=== PATIENT | female | born 1985 | race Two or more races ===

== ENCOUNTER 2018-02-15 15:31 | Emergency (ER) | payer MEDICAID ==
[2016-04-14 16:53] VITALS: Wt 87.5 kg
[~2018-02-15 15:31] MED LIST: ACET-2031 PO; ALBU8.5H12 IH; AMOX-362 PO; AMOX500T10 PO; BENZ200C38 PO; CALC-515 PO; CIPR-344 PO; CODE118S5 PO; FERR-53 PO; FLUO40CA76 PO; HYDR-4309 PO; IBUP600T22 PO; IBUP800T37 PO; KET10 PO; LOR5/325 PO; LORA-802 PO; NEOM10SO23 OT; NORG1TAB74 PO; OXYC-865 PO; PER PO; PRE20 PO; PRED20TA6 PO; PROM-110 PO; TRAZ-163 PO
[2018-02-15] MEDS ORDERED: MELO-207 PO (15:37)
--- NOTE | 2018-02-15 15:51 | ER Report ---
History and Physical Time Seen By MD: 15:51 Hx. of Stated Complaint: PT REPORTS "ADVERSE REACTION FROM MELOXICAM". PT SENT TO ER FROM PRIMARY; TUBAL LIGATION 2 YEARS AGO, STILL HAS PAIN, STILL BREAST FEEDING HPI/ROS CHIEF COMPLAINT: Medication reaction HISTORY OF PRESENT ILLNESS: This is a 32-year-old male who presents to the emergency department for concerns of a medication reaction. Patient states that about 2 years ago she had a tubal ligation, on the right side she's had intermittent abdominal pain since then seems to coincide with her menstrual cycles. Patient states she's followed up with her ETHICS MANAGER and ultimately 5 days ago they gave her some meloxicam to see if that would help with some of discomfort. Patient states that since starting the meloxicam she's had about 2- 3 days worth of increased shortness of breath she is unsure if this is inducing some sort of reaction to her asthma. She called the ETHICS MANAGER and they said go to the emergency department for further evaluation. Patient arrives alert and oriented not short of breath patient states she is feeling better at this time. She did try her albuterol inhaler prior to arrival. Patient states she does not want to take the meloxicam anymore. We discussed trying a couple of other medications and we will also give her a DuoNeb. REVIEW OF SYSTEMS: Respiratory: As above. Cardiovascular: No chest pain, no palpitations. Gastrointestinal: No vomiting, no abdominal pain. Musculoskeletal: No back pain. Allergies: Coded Allergies: No Known Drug Allergies (Verified , 02/15/18) Home Meds Active Scripts Metaxalone (SKELAXIN) 800 Mg Tablet, 800 MG PO TID Y for prn, #21 TAB 0 Refills Prov:FORD COOLEY DRIVER'S LICENSE REVIEWING OFFICER- 02/15/18 Albuterol Sul Hfa 90 Mcg 8 Gm (VENTOLIN HFA 90 MCG 8 GM) 8.5 Gm Hfa.aer.ad, 2 PUFF IH Q4-6H, #1 Prov:BRIAN MENDOZA DO 12/06/14 Reported Medications Meloxicam (MELOXICAM) 15 Mg Tablet, 15 MG PO QDAY 02/15/18 Discontinued Scripts Oxycodone Hcl/Acetaminophen (PERCOCET 5-325 MG TABLET) 1 Each Tablet, 1-2 TAB PO Q4H Y for pain, #30 TAB 0 Refills Prov:NIYA SNYDER MD 06/01/16 Ibuprofen (IBUPROFEN) 800 Mg Tablet, 1 TAB PO Q8H Y for pain, #30 TAB 0 Refills TAKE WITH FOOD EVERY 8 HOURS Prov:NIYA SNYDER MD 06/01/16 Ferrous Sulfate (FERROUS SULFATE) 325 Mg Tablet, 325 MG PO BIDBS for 30 Days, TAB 3 Refills Prov:TIMO CORDOVA MD 04/16/16 Past Medical/Surgical History Patient has a past medical and surgical history of intermittent asthma, wears glasses, , blood transfusion secondary to , psoriasis, depression, anxiety, cholecystectomy, tubal ligation. Reviewed Nurses Notes: Yes Hx Smoking: Yes (10-12 PER DAY 9 YEARS) Smoking Status: Current: Every Day Smoker Exposure to Second Hand Smoke?: Yes Hx Substance Use Disorder: No Hx Alcohol Use: Yes (RARELY) Constitutional Vital Sign - Last 24 Hours 02/15/18 02/15/18 02/15/18 02/15/18 15:31 15:35 15:37 15:46 Temp 98.2 Pulse ??? 103 100 Resp 16 B/P (MAP) 129/93 (105) 129/93 Pulse Ox 93 94 O2 Delivery Room Air 02/15/18 02/15/18 02/15/18 02/15/18 16:00 16:01 16:05 16:05 Pulse 99 93 Resp 17 B/P (MAP) 126/92 (103) Pulse Ox 93 93 O2 Delivery Room Air 02/15/18 02/15/18 02/15/18 02/15/18 16:12 16:16 16:21 16:30 Pulse 95 92 91 Resp 18 B/P (MAP) 126/86 (99) Pulse Ox 99 91 02/15/18 02/15/18 02/15/18 16:36 16:51 17:01 Pulse 88 95 B/P (MAP) 123/91 (102) Pulse Ox 95 92 Physical Exam General Appearance: The patient is alert, has no immediate need for airway protection and no current signs of toxicity. Eyes: Pupils equal and round no injection. Respiratory: Chest is non tender, lungs are clear to auscultation. Cardiac: regular rate and rhythm. Gastrointestinal: Abdomen is soft, round and non tender, no masses, bowel sounds normal. Musculoskeletal: Neck: Neck is supple and non tender. Extremities have full range of motion and are non tender. Skin: No rashes or lesions. DIFFERENTIAL DIAGNOSIS: After history and physical exam differential diagnosis was considered for medication reaction, asthma exacerbation, and abdominal pain. Medical Decision Making ED Course/Re-evaluation ED Course The patient was admitted to room. A history of physical or obtained. Differential diagnoses were considered. Patient states she was feeling much better after taking her own albuterol inhaler at home however we elected to go ahead and proceed with a DuoNeb here at which time she states she felt better. Patient states she will stop taking the meloxicam, we elected to try Skelaxin, the patient was in agreement with this plan of care and discharged home. Patient was also encouraged to follow up with her primary care provider and OB/ MEDICAL SERVICES COORDINATOR as scheduled for the right lower quadrant pain secondary to the tubal ligation according to the patient. Patient had no other questions or concerns was discharged home. The [facility] pharmacy called and said that they could not fill the Skelaxin without a prior authorization, we tried several other medications without required a prior authorization we ultimately decided to try diclofenac to see if this would help with some of her discomfort. Decision to Disposition Date: February 15, 2018 Decision to Disposition Time: 16:52 Depart Departure Latest Vital Signs Vital Signs Date Time Temp Pulse Resp B/P (MAP) Pulse Ox O2 Delivery O2 Flow Rate FiO2 02/15/18 17:01 123/91 (102) 02/15/18 16:51 95 92 02/15/18 16:12 18 02/15/18 16:05 Room Air 02/15/18 15:37 98.2 Impression: Primary Impression: Asthma Condition: Improved Disposition: HOME OR SELF-CARE Referrals: ASSISTANT PROFESSOR NURSE EDUCATION New Scripts Metaxalone (SKELAXIN) 800 Mg Tablet 800 MG PO TID Y for prn, #21 TAB 0 Refills Prov: FORD COOLEY DRIVER'S LICENSE REVIEWING OFFICER-BC 02/15/18 Patient Instructions: Asthma (ED), Tubal Ligation (GEN) Additional Instructions: Drink plenty of water. Get plenty of rest. Use your inhaler as needed. Take the Skelaxin as needed for pain, as we discussed there is no clinical data for or against use during so be cautious with it's use. Follow up with your OB as scheduled. Return to the ED for any other concerns or worsening symptoms. Problem Qualifiers Primary Impression: Asthma Asthma severity: mild Asthma persistence: intermittent Asthma complication type: uncomplicated Qualified Codes: J45.20 - Mild intermittent asthma, uncomplicated FORD COOLEYP- February 15, 2018 15:51
[2018-02-15] MEDS ORDERED: ALBUTEROL/IPRATROPIUM 3 ML NEB NEB ONE (16:10)
[2018-02-15] MEDS ORDERED: META800T18 PO (16:56)
[2018-02-15 17:01] VITALS: BP 123/91
== END 2018-02-15 17:07 | disposition home or self-care (01) ==
LOC: ER 15:40
DX: J45.20 Mild intermittent asthma, uncomplicated (principal)
CPT/HCPCS: 94640; 99283; J7620

== ENCOUNTER → 2018-05-24 | Outpatient (CLI) | payer MEDICAID ==
[2016-04-14 16:53] VITALS: BMI 35.6
[~2018-05-24] MED LIST changes: +CYCL10TA29 PO; +MELO-207 PO; +META800T18 PO; -TRAZ-163 PO; +TRAZ100T31 PO
[2018-05-24 14:07] LABS: PLATELET COUNT, AUTOMATED 419 K/uL (150-450)
== END ==
LOC: LAB 13:37
PROVIDERS: ATTEND Emergency Medicine
DX: M25.559 Pain in unspecified hip (principal)
CPT/HCPCS: 36415; 81001; 82040; 82247; 82306; 82310; 82374; 82435; 82565; 82947; 84075; 84132; 84155; 84295; 84443; 84450; 84460; 84520; 85025; 86140

== ENCOUNTER → 2018-08-07 | Outpatient (CLI) | payer MEDICAID ==
[2016-04-14 16:53] VITALS: BMI 35.6
[~2018-08-07] MED LIST changes: -HYDR-4309 PO; +HYDR-653 PO; +IOPAMIDOL 76% 75 ML INFUS BTL 75 ML ONE; +TRAM-420 PO
--- NOTE | 2018-08-07 13:20 | RADIOLOGY IMAGING REPORT ---
FACILITY: [facility] - [place] PATIENT NAME: Sheryl Hurd : 1985 MR: [id number] V: [id number] EXAM DATE: ORDERING PHYSICIAN: ROXANNE ROSS TECHNOLOGIST: Location: [facility] Patient: Sheryl Hurd : 1985 Visit/Account:[id number] Date of Sevice: 08/07/2018 ABDOMEN/PELVIS W/WO CONTRAST COMPARISON: None. HISTORY: RLQ abdominal pain x 2 years. Patient reports it began after tubal ligation, pain is worse with ambulation. TECHNIQUE: Axial CT abdomen and pelvis with and without IV contrast with a single postcontrast scan in standard venous phase. Coronal and sagittal reformats. One of the following dose optimization te chniques was utilized in the performance of this exam: automated exposure control; adjustment of the mA and/or kV according to patient size; or use of iterative reconstruction technique. Specific detai ls can be referenced in the facility's radiology CT exam operational policy. CONTRAST: 75 mL of IV Isovue-370. FINDINGS: LUNG BASES: Unremarkable. LIVER: Small region of low density in the liver adjacent to the falciform ligament characteristic in location for perfusional variation versus focal fat deposition. Otherwise unremarkable liver. BILIARY: There are cholecystectomy clips in the gallbladder fossa. No intra- or extrahepatic bile duct dilatation. SPLEEN: Normal. PANCREAS: Unremarkable. No significant mass, ductal dilatation or focal atrophy. No evidence of ac kendrick pancreatitis. ADRENALS: Unremarkable. KIDNEYS: There is a 3 mm nonobstructive stone in the left mid kidneya and a less than 1 mm nonobstru ctive stone in the upper pole. Symmetric renal enhancement. No excretion as expected. Single nondi lated right ureter. No right renal lesions. Multiple foci of cortical volume loss with associated d ecreased enhancement in the left kidney consistent with mild chronic parenchymal scarring. Additiona lly there is a slightly rounded area of similar decreased enhancement in the left kidney upper pole a nteriorly measuring 7 x 8 mm and series 939. This demonstrates low-grade enhancement and it is uncle ar if it represents a small renal lesion or an area of rounded cortical scarring. A hypoenhancing re nal neoplasm is difficult to exclude with a slightly rounded margins however it does enhance to the s peyton degree as areas of scarring/volume loss elsewhere. Left ureters are not dilated and there are no left ureteral stones. GI/MESENTERY: No visible mass, obstruction, or bowel wall thickening. The appendix is normal. Ther e is no localized inflammatory fat stranding, free air or free fluid. VASCULAR: Unremarkable. LYMPH NODES: Prominent but not frankly enlarged subcentimeter ridge peritoneal nodes in the abdomen and pelvis. Single borderline enlarged but mostly fatty replaced left external iliac node with short axis diameter one CM on series 5 image 409. BLADDER: Unremarkable. No visible focal wall thickening, appreciable lesion, or calculus. PELVIC ORGANS: Unremarkable uterus. Right-sided tubal ligation clips are noted. There is a lobulat ed lesion with rim enhancement in the right ovary measuring 1.9 cm on series 9 image 57, presumed col lapsing cyst. Left ovary is not identified. There is no left adnexal mass. No left tubal ligation clips identified. BONES: Unremarkable.No acute-appearing fracture or suspicious osseous lesion. OTHER: Negative. IMPRESSION: 1. 1.9 cm lobulated lesion in the right ovary is presumably a collapsing cyst. This could be confir med with a pelvic ultrasound if clinically desired. Otherwise no specific cause for right lower quad rant pain identified. 2. Small nonobstructive stones in the left kidney. No obstructive uropathy. 3. Completely duplicated left renal collecting system with multiple areas of cortical scarring throu ghout the left kidney which could be due to chronic vesicoureteral reflux or recurrent bouts of pyelo nephritis 4. Rounded area of decreased enhancement in the left kidney at the upper pole measuring on ly 8 mm. SCARRING IS FAVORED BUT A HYPOENHANCING NEOPLASM IS DIFFICULT TO EXCLUDE given the rounded margins. PRE-/POSTCONTRAST RENAL MRI RECOMMENDED FOR DIFFERENTIATION. Report Dictated By: Amor Lopez at 08/07/2018 12:53 PM Report E-Signed By: Amor Lopez at 08/07/2018 1:15 PM WSN:[email or web address]
== END ==
LOC: CT 01:38
PROVIDERS: ATTEND Emergency Medicine
DX: N83.202 Unspecified ovarian cyst, left side (principal); N28.1 Cyst of kidney, acquired; R10.31 Right lower quadrant pain
CPT/HCPCS: 74178; Q9967

== ENCOUNTER → 2018-08-09 | Outpatient (CLI) | payer MEDICAID ==
[2016-04-14 16:53] VITALS: BMI 35.6
[~2018-08-09] MED LIST changes: -IOPAMIDOL 76% 75 ML INFUS BTL 75 ML ONE
== END ==
LOC: LAB 11:55
PROVIDERS: ATTEND Emergency Medicine
DX: R10.31 Right lower quadrant pain (principal)
CPT/HCPCS: 81001

== ENCOUNTER → 2018-12-03 | Outpatient (CLI) | payer MEDICAID ==
[2016-04-14 16:53] VITALS: BMI 35.6
[~2018-12-03] MED LIST changes: +GADOBENATE 529MG/1ML 15ML VIAL IVP ONE; +NS(*) 0.9% 50 ML BAG 50 ML ONE
--- NOTE | 2018-12-03 10:45 | RADIOLOGY IMAGING REPORT ---
[place] [facility] [place] NAME: Sheryl Hurd : 1985 MR: [id number] V: [id number] EXAM DATE: ORDERING PHYSICIAN: ROXANNE ROSS TECHNOLOGIST: Location: [facility] Patient: Sheryl Hurd : 1985 Visit/Account:[id number] Date of Sevice: 12/03/2018 MR ABDOMEN W & W/O CON HISTORY: Abnormal left kidney on prior CT ADDITIONAL HISTORY: None. TECHNIQUE: TECHNIQUE: Multiplanar multisequence magnetic resonance imaging of the abdomen with and without intravenous contrast. CONTRAST: 15 mL of MultiHance COMPARISON: CT abdomen and pelvis August 07, 2018 FINDINGS: Visualized lung bases: Grossly unremarkable. Liver: Negative. Gallbladder: Surgically absent Bile ducts: Nondistended and unremarkable. Spleen: Negative. Adrenal glands: Negative. Pancreas: Negative. Kidneys: When compared to the recent CT again noted is cortical scarring in the left kidney. Also no jeanette is duplication of the left renal collecting system. The small 8 mm rounded area of hypoenhanceme nt on the recent CT scan is faintly seen on the postcontrast images and remained hypointense on the p ostcontrast images without evidence of enhancement. No abnormally enhancing lesions are identified w ithin the kidneys. Vessels/spaces/nodes: Mildly prominent but nonenlarged retroperitoneal lymph nodes also appear simila r to the prior CT Visualized GI: Grossly unremarkable. Bones/soft tissues: Unremarkable. IMPRESSION: Cortical scarring of the left kidney although no abnormal areas of contrast-enhancement identified. The previously noted round hypoenhancing region upper pole the left kidney on the recent CT most like ly represents a small area of scarring or a small proteinaceous or hemorrhagic cyst. A six-month fol low-up CT is recommended unless clinical findings were immediate attention Report Dictated By: Carole Soto MD at 12/03/2018 10:17 AM Report E-Signed By: Carole Soto MD at 12/03/2018 10:41 AM WSN:[email or web address]
--- NOTE | 2018-12-03 15:02 | RADIOLOGY IMAGING REPORT ---
FACILITY: [facility] PATIENT NAME: Sheryl Hurd : 1985 MR: [id number] V: [id number] EXAM DATE: ORDERING PHYSICIAN: ROXANNE ROSS TECHNOLOGIST: Location: [facility] Patient: Sheryl Hurd : 1985 Visit/Account:[id number] Date of Sevice: 12/03/2018 PELVIC HISTORY: ovarian lesion TECHNIQUE: Transvaginal and transabdominal ultrasound pelvis. COMPARISON: CT abdomen pelvis August 07, 2018 FINDINGS: Uterus: ; 9.5 cm length x 4.6 cm AP x 4.1 cm transverse. Myometrium: Along the anterior aspect the lower uterine segment there is a 1.8 x 2 x 1.4 cm echogenic nodule containing a cystic component. Endometrium: Unremarkable; double thickness 7.5 mm. Cervix: Nabothian cysts. Ovaries: Right - 2.7 x 2 x 3.2 cm. There is a 1.8 cm cyst within the right ovary. By technologist isiat ion up blood flow could not be demonstrated to the right ovary due to patient's body habitus and deep location of the ovary Left - removed Adnexa: Grossly unremarkable. Free pelvic fluid: None. IMPRESSION: There is a 1.8 cm simple right ovarian cyst By technologist notation blood flow could not be demonstrated to the right ovary due to patient's bod y habitus and deep location of the ovary Left ovary has been surgically removed by history Along the anterior aspect the lower uterine segment there is a 1.8 x 2 x 1.4 cm echogenic nodule cont aining a cystic component. Nabothian cysts Report Dictated By: Carole Soto MD at 12/03/2018 2:52 PM Report E-Signed By: Carole Soto MD at 12/03/2018 2:59 PM WSN:[email or web address]
== END ==
LOC: MRI 01:12
PROVIDERS: ATTEND Emergency Medicine
DX: N83.291 Other ovarian cyst, right side (principal); R93.9 Diagnostic imaging inconclusive due to excess body fat of patient; R93.421 Abnormal radiologic findings on diagnostic imaging of right kidney; Z90.49 Acquired absence of other specified parts of digestive tract; Z90.721 Acquired absence of ovaries, unilateral; N88.8 Other specified noninflammatory disorders of cervix uteri
CPT/HCPCS: 74183; 76856; A9577; J7050

== ENCOUNTER → 2018-12-24 | Outpatient (CLI) | payer MEDICAID ==
[2016-04-14 16:53] VITALS: BMI 35.6
[~2018-12-24] MED LIST changes: -GADOBENATE 529MG/1ML 15ML VIAL IVP ONE; -NS(*) 0.9% 50 ML BAG 50 ML ONE; +[UNRECOGNIZED DRUG - OTHER] IVPB ONE
--- NOTE | 2018-12-24 12:23 | RADIOLOGY IMAGING REPORT ---
FACILITY: [facility] PATIENT NAME: Sheryl Hurd : 1985 MR: [id number] V: [id number] EXAM DATE: ORDERING PHYSICIAN: KALYANI ACEVEDO TECHNOLOGIST: [place] [facility] [place] Patient: Sheryl Hurd : 1985 Visit/Account:[id number] Date of Sevice: 12/24/2018 Examination: Voiding cystourethrogram HISTORY: Duplicated left renal collecting system. Evaluate for vesicoureteral reflux. TECHNIQUE: A junior web designer image was obtained of the abdomen. A Mcclain catheter was placed by one of the emergency room nurses. The bladder was then filled with 350 mL of Cysto-Conray. Fluoroscopic overhead images were obtained of the bladder in multiple projections. Images were also obtained of the upper abdomen to i nclude the kidneys. The table was then positioned vertically and the patient voided. Fluoroscopic s pot images were then obtained. The fluoroscopy time measured 1.8 minutes with a dose area product of 2236.32uGy*m2. Findings: The initial junior web designer image demonstrates a normal intestinal bowel gas pattern. A rounded calcification overlies the upper pole of the left kidney which measures 4-5 mm consistent with a left-sided renal s tone. The bladder appears normal when fully distended with contrast. There is no evidence of vesicouretera l reflux with a full bladder. Views of the urethra were normal. The bladder nearly completely emptied with voiding. There was no evidence of vesicoureteral reflux with voiding. IMPRESSION: 1. No evidence of vesicoureteral reflux. 2. Near complete emptying of the bladder with voiding. 3. Left midpole renal stone. Report Dictated By: Tyron Argueta at 12/24/2018 12:13 PM Report E-Signed By: Tyron Argueta at 12/24/2018 12:18 PM WSN:[email or web address]
== END ==
LOC: RAD 02:28
PROVIDERS: ATTEND Urology
DX: N20.0 Calculus of kidney (principal)
CPT/HCPCS: 51600; 74455; Q9958

== ENCOUNTER 2019-01-14 17:30 | Emergency (ER) | payer SELFPAY ==
[2016-04-14 16:53] VITALS: Wt 99.8 kg
[~2019-01-14 17:30] MED LIST changes: -[UNRECOGNIZED DRUG - OTHER] IVPB ONE
--- NOTE | 2019-01-14 17:32 | ER Report ---
History and Physical Time Seen By MD: 17:31 HPI/ROS CHIEF COMPLAINT: Fever, chills HISTORY OF PRESENT ILLNESS: 33 year-old female presents ambulatory to the ER complaining of chills for 24 hours. She notes no obvious source. She denies upper respiratory symptoms, sore throat, rhinitis or a cough. She denies ear pain. 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 She denies urinary tract symptoms. Patient denies exposure to ill contacts. REVIEW OF SYSTEMS: Respiratory: No cough, no dyspnea. Cardiovascular: No chest pain, no palpitations. Gastrointestinal: No vomiting, no abdominal pain. Musculoskeletal: No back pain. Allergies: Coded Allergies: meloxicam (Verified Allergy, Unknown, anxiety, 01/14/19) Home Meds Active Scripts Cefuroxime Axetil (CEFUROXIME) 500 Mg Tablet, 500 MG PO BID for infection, #20 TAB Prov:BK MACHADO DO 01/14/19 Albuterol Sul Hfa 90 Mcg 8 Gm (VENTOLIN HFA 90 MCG 8 GM) 8.5 Gm Hfa.aer.ad, 2 PUFF IH Q4-6H, #1 Prov:BRIAN MENDOZA DO 12/06/14 Discontinued Scripts Tramadol Hcl (TRAMADOL HCL) 50 Mg Tablet, 50-100 MG PO Q4-6H, #30 TAB Prov:ROXANNE ROSS MD 08/09/18 Cyclobenzaprine Hcl (CYCLOBENZAPRINE HCL) 10 Mg Tablet, 10 MG PO TID, #30 TAB 0 Refills Prov:ROXANNE ROSS MD 05/24/18 Past Medical/Surgical History Past Medical History Respiratory: Reports hx of: asthma Gastrointestinal: Reports hx of: peptic ulcer disease Integumentary: Reports hx of: psoriasis Psychiatric: Reports hx of: anxiety Past Surgical History Gastrointestinal: Reports hx of: cholecystectomy (2008) Gynecologic: Reports hx of: oophorectomy (L ovary removed 2012) tubal ligation (2015) Reviewed Nurses Notes: Yes Old Medical Records Reviewed: Yes Hx Smoking: Yes (10-12 PER DAY 9 YEARS) Smoking Status: Current: Every Day Smoker Exposure to Second Hand Smoke?: Yes (15) Hx Substance Use Disorder: No Hx Alcohol Use: Yes (RARELY) Constitutional Vital Sign - Last 24 Hours 01/14/19 01/14/19 01/14/19 01/14/19 17:35 18:00 18:26 18:30 Temp 101.3 Pulse 117 107 100 Resp 18 19 B/P (MAP) 105/62 127/87 (100) Pulse Ox 93 93 91 O2 Delivery Room Air 01/14/19 01/14/19 01/14/19 01/14/19 18:35 18:43 18:50 19:05 Temp 102.9 Pulse 104 100 105 Resp 11 20 15 Pulse Ox 91 90 92 01/14/19 01/14/19 01/14/19 19:20 19:35 19:50 Pulse 104 108 104 Resp 12 8 9 Pulse Ox 91 91 91 Intake and Output 01/14/19 01/14/19 01/15/19 14:59 22:59 06:59 Intake Total 2000 ml Balance 2000 ml Physical Exam General Appearance: The patient is alert, has no immediate need for airway protection and no current signs of toxicity., Fever 101.4 HEENT: Pupils equal and round no injection. TMs normal, oropharynx with no erythema, mucous numbers are moist Respiratory: Chest is non tender, lungs are clear to auscultation. No wheezing or rails Cardiac: regular rate and rhythm Gastrointestinal: Abdomen is soft and non tender, no masses, bowel sounds normal. No CVA tenderness Musculoskeletal: Neck: Neck is supple and non tender. No lymphadenopathy, no meningismus Extremities have full range of motion and are non tender. Skin: No rashes or lesions. DIFFERENTIAL DIAGNOSIS: After history and physical exam differential diagnosis was considered for adult fever including but not limited to viral syndromes including influenza, urinary tract infection, pneumonia and sepsis. Medical Decision Making Data Points Result Diagram: 01/14/19 17401/14/19 174 Laboratory Hematology Test 01/14/19 17:40 01/14/19 17:43 01/14/19 18:21 Red Blood Count 5.61 M/uL (4.17-5.56) Mean Corpuscular Volume 81.3 fL (80.0-96.0) Mean Corpuscular Hemoglobin 26.7 pg (26.0-33.0) Mean Corpuscular Hemoglobin Concent 32.8 g/dL (32.0-36.0) Red Cell Distribution Width 14.8 % (11.5-14.5) Mean Platelet Volume 8.2 fL (7.2-11.1) Neutrophils (%) (Auto) 81.8 % (39.4-72.5) Lymphocytes (%) (Auto) 7.5 % (17.6-49.6) Monocytes (%) (Auto) 8.7 % (4.1-12.4) Eosinophils (%) (Auto) 1.3 % (0.4-6.7) Basophils (%) (Auto) 0.7 % (0.3-1.4) Nucleated RBC Relative Count (auto) 0.0 /100WBC Neutrophils # (Auto) 16.1 K/uL (2.0-7.4) Lymphocytes # (Auto) 1.5 K/uL (1.3-3.6) Monocytes # (Auto) 1.7 K/uL (0.3-1.0) Eosinophils # (Auto) 0.3 K/uL (0.0-0.5) Basophils # (Auto) 0.1 K/uL (0.0-0.1) Nucleated RBC Absolute Count (auto) 0.01 K/uL Sodium Level 139 mmol/L (137-145) Potassium Level 4.2 mmol/L (3.5-5.0) Chloride Level 102 mmol/L (98-107) Carbon Dioxide Level 24 mmol/L (22-31) Blood Urea Nitrogen 10 mg/dl (7-18) Creatinine 0.90 mg/dl (0.52-1.04) Glomerular Filtration Rate Calc > 60.0 Random Glucose 98 mg/dl (75-110) Lactate 1.3 mmol/L (0.7-2.1) Calcium Level 10.1 mg/dl (8.4-10.2) Total Bilirubin 0.4 mg/dl (0.2-1.3) Aspartate Amino Transf (AST/SGOT) 17 U/L (0-35) Alanine Aminotransferase (ALT/SGPT) 25 U/L (0-56) Alkaline Phosphatase 109 U/L (0-126) Total Protein 8.2 g/dl (6.3-8.2) Albumin 4.6 g/dl (3.5-5.0) Urine Color Yellow Urine Clarity Slightly-cloudy Urine pH 5.0 pH (4.8-9.5) Urine Specific [place] 1.016 Urine Protein Negative mg/dL (NEGATIVE) Urine Glucose (UA) Negative mg/dL (NEGATIVE) Urine Ketones Negative mg/dL (NEGATIVE) Urine Blood Moderate (NEGATIVE) Urine Nitrite Negative (NEGATIVE) Urine Bilirubin Negative (NEGATIVE) Urine Urobilinogen Negative mg/dL (0.2-1.9) Urine Leukocyte Esterase Small (NEGATIVE) Urine RBC 52 /HPF (0-2/HPF) Urine WBC 7 /HPF (0-5/HPF) Urine Squamous Epithelial Cells Many /LPF (</=FEW) Urine Bacteria Moderate /HPF (NONE-FEW) Urine Mucus None /HPF (NONE-FEW) Influenza Virus Type A (PCR) Negative (NEGATIVE) Influenza Virus Type B (PCR) Negative (NEGATIVE) Chemistry Test 01/14/19 17:40 01/14/19 17:43 01/14/19 18:21 White Blood Count 19.7 k/uL (4.5-11.0) Red Blood Count 5.61 M/uL (4.17-5.56) Hemoglobin 15.0 g/dL (12.0-16.0) Hematocrit 45.6 % (34.0-47.0) Mean Corpuscular Volume 81.3 fL (80.0-96.0) Mean Corpuscular Hemoglobin 26.7 pg (26.0-33.0) Mean Corpuscular Hemoglobin Concent 32.8 g/dL (32.0-36.0) Red Cell Distribution Width 14.8 % (11.5-14.5) Platelet Count 458 K/uL (150-450) Mean Platelet Volume 8.2 fL (7.2-11.1) Neutrophils (%) (Auto) 81.8 % (39.4-72.5) Lymphocytes (%) (Auto) 7.5 % (17.6-49.6) Monocytes (%) (Auto) 8.7 % (4.1-12.4) Eosinophils (%) (Auto) 1.3 % (0.4-6.7) Basophils (%) (Auto) 0.7 % (0.3-1.4) Nucleated RBC Relative Count (auto) 0.0 /100WBC Neutrophils # (Auto) 16.1 K/uL (2.0-7.4) Lymphocytes # (Auto) 1.5 K/uL (1.3-3.6) Monocytes # (Auto) 1.7 K/uL (0.3-1.0) Eosinophils # (Auto) 0.3 K/uL (0.0-0.5) Basophils # (Auto) 0.1 K/uL (0.0-0.1) Nucleated RBC Absolute Count (auto) 0.01 K/uL Glomerular Filtration Rate Calc > 60.0 Lactate 1.3 mmol/L (0.7-2.1) Calcium Level 10.1 mg/dl (8.4-10.2) Total Bilirubin 0.4 mg/dl (0.2-1.3) Aspartate Amino Transf (AST/SGOT) 17 U/L (0-35) Alanine Aminotransferase (ALT/SGPT) 25 U/L (0-56) Alkaline Phosphatase 109 U/L (0-126) Total Protein 8.2 g/dl (6.3-8.2) Albumin 4.6 g/dl (3.5-5.0) Urine Color Yellow Urine Clarity Slightly-cloudy Urine pH 5.0 pH (4.8-9.5) Urine Specific [place] 1.016 Urine Protein Negative mg/dL (NEGATIVE) Urine Glucose (UA) Negative mg/dL (NEGATIVE) Urine Ketones Negative mg/dL (NEGATIVE) Urine Blood Moderate (NEGATIVE) Urine Nitrite Negative (NEGATIVE) Urine Bilirubin Negative (NEGATIVE) Urine Urobilinogen Negative mg/dL (0.2-1.9) Urine Leukocyte Esterase Small (NEGATIVE) Urine RBC 52 /HPF (0-2/HPF) Urine WBC 7 /HPF (0-5/HPF) Urine Squamous Epithelial Cells Many /LPF (</=FEW) Urine Bacteria Moderate /HPF (NONE-FEW) Urine Mucus None /HPF (NONE-FEW) Influenza Virus Type A (PCR) Negative (NEGATIVE) Influenza Virus Type B (PCR) Negative (NEGATIVE) Urinalysis Test 01/14/19 17:43 Urine Color Yellow Urine Clarity Slightly-cloudy Urine pH 5.0 pH (4.8-9.5) Urine Specific [place] 1.016 Urine Protein Negative mg/dL (NEGATIVE) Urine Glucose (UA) Negative mg/dL (NEGATIVE) Urine Ketones Negative mg/dL (NEGATIVE) Urine Blood Moderate (NEGATIVE) Urine Nitrite Negative (NEGATIVE) Urine Bilirubin Negative (NEGATIVE) Urine Urobilinogen Negative mg/dL (0.2-1.9) Urine Leukocyte Esterase Small (NEGATIVE) Urine RBC 52 /HPF (0-2/HPF) Urine WBC 7 /HPF (0-5/HPF) Urine Squamous Epithelial Cells Many /LPF (</=FEW) Urine Bacteria Moderate /HPF (NONE-FEW) Urine Mucus None /HPF (NONE-FEW) ED Course/Re-evaluation Clinical Indication for ER IV: Hydration, IV Access ED Course Patient was admitted to an examination room. H&P was done. The differential diagnoses was considered. Patient with a fever 101.4. She's having chills. Sugars no obvious source that she admits to. She denies urinary tract infection and upper respiratory infection. She has no joint swelling. She has no abdominal pain. Diagnostic evaluation is undertaken. Patient has elevated white blood cell count of 20,000. There is a left shift. Patient's chest x-ray is clear. He has some chronic scarring is unchanged from old chest x-ray. Her urinalysis has a trace infection. Explain a 20,000 white count, dairy cultures ordered. Blood cultures are ordered. Lactate returns normal. Patient's rapid influenza is negative as well well. Patient will be covered with Ceftin antibiotic pending return of her cultures. Patient advised to alternate ibuprofen and Tylenol to control her fever and increase her fluid intake. Decision to Disposition Date: Jan 14, 2019 Decision to Disposition Time: 19:43 Depart Departure Latest Vital Signs Vital Signs Date Time Temp Pulse Resp B/P (MAP) Pulse Ox O2 Delivery O2 Flow Rate FiO2 01/14/19 19:50 104 9 91 01/14/19 18:43 102.9 01/14/19 18:26 127/87 (100) 01/14/19 17:35 Room Air Impression: Primary Impression: Fever Additional Impression: Urinary tract infection Condition: Improved Disposition: HOME OR SELF-CARE Referrals: ROXANNE ROSS MD (PCP) New Scripts Cefuroxime Axetil (CEFUROXIME) 500 Mg Tablet 500 MG PO BID for infection, #20 TAB Prov: CARTERBK Susanne GALDAMEZ 01/14/19 Patient Instructions: Fever in Adults (ED), Urinary Tract Infection in Men (ED) Additional Instructions: Take ibuprofen and Tylenol as needed to control fever Increase fluid intake, especially popsicles Take antibiotic until gone Follow-up with your primary care doctor if unimproved in 2-3 days Problem Qualifiers Primary Impression: Fever Fever type: unspecified Qualified Codes: R50.9 - Fever, unspecified Additional Impression: Urinary tract infection Urinary tract infection type: acute cystitis Hematuria presence: without hematuria Qualified Codes: N30.00 - Acute cystitis without hematuria BK MACHADO DO Jan 14, 2019 17:32
[2019-01-14] MEDS ORDERED: NS(*) 0.9% 1000 ML BAG 1,000 ML IV ONE ×3 (17:38→18:30)
[2019-01-14] MEDS ORDERED: ACETAMINOPHEN 325 MG TAB PO ONE (17:40)
[2019-01-14 18:10] LABS: PLATELET COUNT, AUTOMATED 458 K/uL (150-450)
[2019-01-14 18:26] VITALS: BP 127/87
--- NOTE | 2019-01-14 18:29 | RADIOLOGY IMAGING REPORT ---
FACILITY: [facility] - [place] PATIENT NAME: Sheryl Hurd : 1985 MR: [id number] V: [id number] EXAM DATE: ORDERING PHYSICIAN: BK MACHADO TECHNOLOGIST: Location: [facility] Patient: Sheryl Hurd : 1985 Visit/Account:[id number] Date of Sevice: 01/14/2019 2 VIEWS CHEST INDICATION: Cough, fever and chills. COMPARISON: 01/27/2015. FINDINGS: Cardiomediastinal silhouette and pulmonary vessels within normal limits. There is no focal infiltrate or lobar consolidation. There is no pneumothorax or pleural effusion. No nodule. Upper abdomen is unremarkable. Surgical clips in the right upper abdomen. No acute bony abnormality. IMPRESSION: 1. No acute cardiopulmonary process. Report Dictated By: Johnathan Sanches at 01/14/2019 6:24 PM Report E-Signed By: Johnathan Sanches at 01/14/2019 6:25 PM WSN:[id number]
[2019-01-14] MEDS ORDERED: CEFU500T10 PO (19:44)
[2019-01-14] MEDS ORDERED: CEFUROXIME AXETIL 250 MG TAB PO ONE (19:45)
[2019-01-15] MEDS ORDERED: CIPR-344 PO (18:24)
[2019-01-15] MEDS ORDERED: ONDA4TAB9 PO (18:24)
[2019-01-15] MEDS ORDERED: HYDR-385 PO (18:24)
== END 2019-01-14 20:04 | disposition home or self-care (01) ==
LOC: ER 17:46
DX: N30.00 Acute cystitis without hematuria (principal); R50.9 Fever, unspecified
CPT/HCPCS: 71046; 81001; 83605; 85025; 87040; 87077; 87088; 87186; 87502; 96360; 96361; 99283; J7030; 82040; 82247; 82310; 82374; 82435; 82565; 82947; 84075; 84132; 84155; 84295; 84450; 84460; 84520

== ENCOUNTER 2019-01-15 16:01 | Emergency (ER) | payer SELFPAY ==
[2016-04-14 16:53] VITALS: Wt 99.8 kg
[~2019-01-15 16:01] MED LIST changes: +CEFU500T10 PO
[2019-01-15] MEDS ORDERED: NS(*) 0.9% 1000 ML BAG 1,000 ML IV ONE (16:34)
[2019-01-15] MEDS ORDERED: MORPHINE 2 MG/ML SYR IVP ONE (16:35)
[2019-01-15] MEDS ORDERED: ONDANSETRON 4 MG/2 ML VIAL IVP ONE ×2 (16:35→18:40)
--- NOTE | 2019-01-15 16:40 | ER Report ---
History and Physical Time Seen By MD: 16:40 Hx. of Stated Complaint: GIVEN CEPHALOSPORIN YESTERDAY FOR UTI. VOMITING X4 TODAY. FEVER, COUGH. BILATERAL FLANK PAIN. RLQ PAIN. HPI/ROS CHIEF COMPLAINT: Vomiting HISTORY OF PRESENT ILLNESS: 33 year old female presents with vomiting that started this morning. Patient was seen in the ED last night for fever, cough. She was diagnosed with a UTI and prescribed keflex. Patient took first dose this morning, and soon after, she began vomiting. Reports she has vomited 6-7 times today, no hematemesis. Reports she has been unable to keep anything down. She has cold and cough symptoms as well, which exacerbates the vomiting. Reports associated symptoms of nausea, fever, chills, headache, dizziness, right flank pain, lower abdominal pain. REVIEW OF SYSTEMS: Constitutional: Reports fever, chills, decreased appetite. HEENT: Reports dizziness/lightheadedness. No change in vision or hearing. Respiratory: Reports cough, no dyspnea Cardiovascular: No chest pain, no palpitations. Gastrointestinal: Reports nausea, vomiting, right flank pain, lower pelvic pain. Genitourinary: Denies burning or frequency of urination, denies change in urinary color. Musculoskeletal: Right flank pain and right low back pain. Skin: No rashes Allergies: Coded Allergies: meloxicam (Verified Allergy, Unknown, anxiety, 01/14/19) Home Meds Active Scripts Hydrocodone Bit/Acetaminophen (HYDROCODON-ACETAMINOPHEN 5-325) 1 Each Tablet, 1 EACH PO Q4-6H PRN for PAIN, #8 TAB Prov:LIU BEDOLLA [facility] 01/15/19 Ondansetron 4 Mg Odt (ONDANSETRON 4 MG ODT) 4 Mg Tab.rapdis, 4 MG PO Q6H PRN for NAUSEA/VOMITING, #20 TAB Prov:LIU BEDOLLA [facility] 01/15/19 Ciprofloxacin Hcl 500 Mg Tab (CIPRO 500 MG TAB) 500 Mg Tablet, 500 MG PO BID, #14 TAB Prov:LIU BEDOLLA [facility] 01/15/19 Cefuroxime Axetil (CEFUROXIME) 500 Mg Tablet, 500 MG PO BID for infection, #20 TAB Prov:BK MACHADO DO 01/14/19 Albuterol Sul Hfa 90 Mcg 8 Gm (VENTOLIN HFA 90 MCG 8 GM) 8.5 Gm Hfa.aer.ad, 2 PUFF IH Q4-6H, #1 Prov:BRIAN MENDOZA DO 12/06/14 Discontinued Scripts Tramadol Hcl (TRAMADOL HCL) 50 Mg Tablet, 50-100 MG PO Q4-6H, #30 TAB Prov:ROXANNE ROSS MD 08/09/18 Cyclobenzaprine Hcl (CYCLOBENZAPRINE HCL) 10 Mg Tablet, 10 MG PO TID, #30 TAB 0 Refills Prov:ROXANNE ROSS MD 05/24/18 Past Medical/Surgical History Patient with significant past medical history of migraines, asthma, scarred kidneys, frequent UTIs, psoriasis, depression, anxiety. Patient has had to have 2 blood transfusions after . Past surgical history significant for section X2, cholecystectomy in 2008, left fallopian tube and left ovary removal, right tubal ligation. Reviewed Nurses Notes: Yes Hx Smoking: Yes (10-12 PER DAY 9 YEARS) Smoking Status: Current: Every Day Smoker Exposure to Second Hand Smoke?: Yes (15) Hx Substance Use Disorder: No Hx Alcohol Use: Yes (RARELY) Constitutional Vital Sign - Last 24 Hours 01/15/19 01/15/19 01/15/19 01/15/19 16:01 16:13 16:13 16:16 Temp 101.4 Pulse ??? 107 104 Resp 18 B/P (MAP) 119/81 (94) 119/81 Pulse Ox 90 90 O2 Delivery Room Air 01/15/19 01/15/19 01/15/19 01/15/19 16:30 16:31 16:46 17:00 Pulse 100 99 B/P (MAP) 125/80 (95) 117/75 (89) Pulse Ox 96 91 01/15/19 01/15/19 01/15/19 01/15/19 17:01 17:16 17:30 17:31 Pulse 93 87 75 B/P (MAP) 112/63 (79) Pulse Ox 88 85 96 01/15/19 01/15/19 01/15/19 01/15/19 17:46 18:00 18:05 18:20 Pulse 83 ? B/P (MAP) 129/70 (89) Pulse Ox 93 4/16/19 4/16/19 4/16/19 4/16/19 18:30 18:35 18:50 18:50 Pulse 91 85 84 Resp 16 B/P (MAP) 104/94 (97) Pulse Ox 90 91 01/15/19 01/15/19 01/15/19 01/15/19 18:50 19:00 19:05 19:20 Pulse 96 104 B/P (MAP) 122/70 (87) Pulse Ox 92 89 90 O2 Delivery Nasal Cannula O2 Flow Rate 2.0 01/15/19 01/15/19 19:30 19:35 Pulse ??? B/P (MAP) 132/71 (91) Physical Exam General Appearance: The patient is alert, has no immediate need for airway protection and no current signs of toxicity. Eyes: Pupils equal and round no injection. Respiratory: Chest is non tender, lungs are clear to auscultation. Cardiac: regular rate and rhythm Gastrointestinal: Upon palpation, patient reports right flank pain, lower pelvic pain, RUQ pain, and LUQ pain. Abdomen is soft, no masses, bowel sounds normal. Skin: No rashes or lesions. DIFFERENTIAL DIAGNOSIS: After history and physical exam differential diagnosis was considered for pyelonephritis, appendicitis, diverticulitis, bowel perforation, bowel obstruction, Medical Decision Making Data Points Result Diagram: 01/15/19 1655 01/15/19 1655 Laboratory Hematology Test 01/15/19 16:10 01/15/19 16:55 Urine Color Yellow Urine Clarity Clear Urine pH 5.0 pH (4.8-9.5) Urine Specific [place] 1.016 Urine Protein Negative mg/dL (NEGATIVE) Urine Glucose (UA) Negative mg/dL (NEGATIVE) Urine Ketones Negative mg/dL (NEGATIVE) Urine Blood Large (NEGATIVE) Urine Nitrite Negative (NEGATIVE) Urine Bilirubin Negative (NEGATIVE) Urine Urobilinogen Negative mg/dL (0.2-1.9) Urine Leukocyte Esterase Large (NEGATIVE) Urine RBC 106 /HPF (0-2/HPF) Urine WBC 31 /HPF (0-5/HPF) Urine Squamous Epithelial Cells Many /LPF (</=FEW) Urine Bacteria Few /HPF (NONE-FEW) Urine Mucus Few /HPF (NONE-FEW) Red Blood Count 5.34 M/uL (4.17-5.56) Mean Corpuscular Volume 79.8 fL (80.0-96.0) Mean Corpuscular Hemoglobin 26.3 pg (26.0-33.0) Mean Corpuscular Hemoglobin Concent 33.0 g/dL (32.0-36.0) Red Cell Distribution Width 14.5 % (11.5-14.5) Mean Platelet Volume 7.8 fL (7.2-11.1) Neutrophils (%) (Auto) 82.2 % (39.4-72.5) Lymphocytes (%) (Auto) 7.7 % (17.6-49.6) Monocytes (%) (Auto) 9.0 % (4.1-12.4) Eosinophils (%) (Auto) 0.6 % (0.4-6.7) Basophils (%) (Auto) 0.5 % (0.3-1.4) Nucleated RBC Relative Count (auto) 0.0 /100WBC Neutrophils # (Auto) 16.7 K/uL (2.0-7.4) Lymphocytes # (Auto) 1.6 K/uL (1.3-3.6) Monocytes # (Auto) 1.8 K/uL (0.3-1.0) Eosinophils # (Auto) 0.1 K/uL (0.0-0.5) Basophils # (Auto) 0.1 K/uL (0.0-0.1) Nucleated RBC Absolute Count (auto) 0.00 K/uL Peripheral Blood Smear Yes Y/N Erythrocyte Sedimentation Rate 65 mm/HOUR (0-20) Sodium Level 138 mmol/L (137-145) Potassium Level 3.5 mmol/L (3.5-5.0) Chloride Level 105 mmol/L (98-107) Carbon Dioxide Level 21 mmol/L (22-31) Blood Urea Nitrogen 8 mg/dl (7-18) Creatinine 0.70 mg/dl (0.52-1.04) Glomerular Filtration Rate Calc > 60.0 Random Glucose 153 mg/dl (75-110) Lactate 2.0 mmol/L (0.7-2.1) Calcium Level 8.9 mg/dl (8.4-10.2) Total Bilirubin 0.4 mg/dl (0.2-1.3) Aspartate Amino Transf (AST/SGOT) 15 U/L (0-35) Alanine Aminotransferase (ALT/SGPT) 17 U/L (0-56) Alkaline Phosphatase 101 U/L (0-126) C-Reactive Protein 23.0 mg/dl (<1.0) Total Protein 7.8 g/dl (6.3-8.2) Albumin 4.1 g/dl (3.5-5.0) Chemistry Test 01/15/19 16:10 01/15/19 16:55 Urine Color Yellow Urine Clarity Clear Urine pH 5.0 pH (4.8-9.5) Urine Specific [place] 1.016 Urine Protein Negative mg/dL (NEGATIVE) Urine Glucose (UA) Negative mg/dL (NEGATIVE) Urine Ketones Negative mg/dL (NEGATIVE) Urine Blood Large (NEGATIVE) Urine Nitrite Negative (NEGATIVE) Urine Bilirubin Negative (NEGATIVE) Urine Urobilinogen Negative mg/dL (0.2-1.9) Urine Leukocyte Esterase Large (NEGATIVE) Urine RBC 106 /HPF (0-2/HPF) Urine WBC 31 /HPF (0-5/HPF) Urine Squamous Epithelial Cells Many /LPF (</=FEW) Urine Bacteria Few /HPF (NONE-FEW) Urine Mucus Few /HPF (NONE-FEW) White Blood Count 20.3 k/uL (4.5-11.0) Red Blood Count 5.34 M/uL (4.17-5.56) Hemoglobin 14.1 g/dL (12.0-16.0) Hematocrit 42.6 % (34.0-47.0) Mean Corpuscular Volume 79.8 fL (80.0-96.0) Mean Corpuscular Hemoglobin 26.3 pg (26.0-33.0) Mean Corpuscular Hemoglobin Concent 33.0 g/dL (32.0-36.0) Red Cell Distribution Width 14.5 % (11.5-14.5) Platelet Count 398 K/uL (150-450) Mean Platelet Volume 7.8 fL (7.2-11.1) Neutrophils (%) (Auto) 82.2 % (39.4-72.5) Lymphocytes (%) (Auto) 7.7 % (17.6-49.6) Monocytes (%) (Auto) 9.0 % (4.1-12.4) Eosinophils (%) (Auto) 0.6 % (0.4-6.7) Basophils (%) (Auto) 0.5 % (0.3-1.4) Nucleated RBC Relative Count (auto) 0.0 /100WBC Neutrophils # (Auto) 16.7 K/uL (2.0-7.4) Lymphocytes # (Auto) 1.6 K/uL (1.3-3.6) Monocytes # (Auto) 1.8 K/uL (0.3-1.0) Eosinophils # (Auto) 0.1 K/uL (0.0-0.5) Basophils # (Auto) 0.1 K/uL (0.0-0.1) Nucleated RBC Absolute Count (auto) 0.00 K/uL Peripheral Blood Smear Yes Y/N Erythrocyte Sedimentation Rate 65 mm/HOUR (0-20) Glomerular Filtration Rate Calc > 60.0 Lactate 2.0 mmol/L (0.7-2.1) Calcium Level 8.9 mg/dl (8.4-10.2) Total Bilirubin 0.4 mg/dl (0.2-1.3) Aspartate Amino Transf (AST/SGOT) 15 U/L (0-35) Alanine Aminotransferase (ALT/SGPT) 17 U/L (0-56) Alkaline Phosphatase 101 U/L (0-126) C-Reactive Protein 23.0 mg/dl (<1.0) Total Protein 7.8 g/dl (6.3-8.2) Albumin 4.1 g/dl (3.5-5.0) Urinalysis Test 01/15/19 16:10 Urine Color Yellow Urine Clarity Clear Urine pH 5.0 pH (4.8-9.5) Urine Specific [place] 1.016 Urine Protein Negative mg/dL (NEGATIVE) Urine Glucose (UA) Negative mg/dL (NEGATIVE) Urine Ketones Negative mg/dL (NEGATIVE) Urine Blood Large (NEGATIVE) Urine Nitrite Negative (NEGATIVE) Urine Bilirubin Negative (NEGATIVE) Urine Urobilinogen Negative mg/dL (0.2-1.9) Urine Leukocyte Esterase Large (NEGATIVE) Urine RBC 106 /HPF (0-2/HPF) Urine WBC 31 /HPF (0-5/HPF) Urine Squamous Epithelial Cells Many /LPF (</=FEW) Urine Bacteria Few /HPF (NONE-FEW) Urine Mucus Few /HPF (NONE-FEW) EKG/Imaging Imaging FINDINGS: Lung bases: The lung bases are clear with only trace atelectasis. Liver and hepatic vasculature: Minimal fatty infiltration adjacent to the falciform. No focal lesion. Gallbladder and bile ducts: Surgically absent gallbladder. Mild prominence of the common bile duct in keeping with cholecystectomy. Spleen: Normal Pancreas: Normal Adrenals: Normal Kidneys, ureters and bladder: There is heterogeneous enhancement of the right renal parenchyma with some haziness and stranding adjacent to the right kidney and right ureter. No stone or obstruction. Normal appearing bladder.. Nonobstructive 4 to 5 mm left renal calculus. Normal left renal enhancement. Retroperitoneum and aorta: Normal caliber aorta. GI tract, mesentery and peritoneum: Normal appendix. Liquid stool in the right colon may correlate with diarrhea history. Uterus and adnexa: Unremarkable uterus. Bones and soft tissues: No acute osseous abnormality. IMPRESSION: 1. Heterogeneous enhancement of the right kidney and mild perinephric stranding suggest pyelonephritis. No obstructive stone. 2. Small amount of liquid stool in the right colon may correlate with a diarrhe a history. One of the following dose optimization techniques was utilized in the performance of this exam: Automated exposure control; adjustment of the mA and/or kV according to the patient's size; or use of an iterative reconstruction technique. Specific details can be referenced in the facility's radiology CT exam operational policy. ED Course/Re-evaluation ED Course Patient admitted to an exam room, history and physical obtained, differentials considered. Patient reports vomiting that started this morning. Patient was seen in the ED last night for fever, cough. She was diagnosed with a UTI and prescribed keflex. Patient took first dose this morning, and soon after, she began vomiting. Reports she has vomited 6-7 times today, no hematemesis. Reports she has been unable to keep anything down. Reports associated symptoms of nausea, fever, chills, headache, dizziness, right flank pain, lower abdominal pain. Denies burning or frequency of urination and change in urine color. Heart rate regular, regular rhythm. Lungs clear to auscultation. Upon palpation, patient reports right flank pain, lower pelvic pain, RUQ pain, and LUQ pain. CBC, CMP, lactate, ESR, CRP, UA, CT of abdomen and pelvis w/contrast obtained. IV started and 1000 ml NS infused, Morphine 4 mg IV push given, and Zofran 4mg IVP. WBC 20.3, Neutrophils 82.2, ESR 65, CRP 23. WBC from yesterday were 19.7 and neutrophils were 81.8. UA with large leukocytes. CT scan shows heterogeneous enhancement of the right kidney and mild perinephric stranding suggesting pyelonephritis; no obstructive stone. Ceftriaxone 1 gram IV given. Will send patient home with new prescription of ciprofoxacin for 7 days, zofran as needed for nausea, and lortab as needed for pain. Patient started to vomit prior to discharge again, so given one more dose of zofran prior to discharge. Patient home with self care and agrees to plan of care. Decision to Disposition Date: Jan 15, 2019 Decision to Disposition Time: 18:26 Depart Departure Latest Vital Signs Vital Signs Date Time Temp Pulse Resp B/P (MAP) Pulse Ox O2 Delivery O2 Flow Rate FiO2 01/15/19 19:35 ??? 01/15/19 19:30 132/71 (91) 01/15/19 19:20 90 01/15/19 18:50 Nasal Cannula 2.0 01/15/19 18:50 16 01/15/19 16:13 101.4 Impression: Primary Impression: Pyelonephritis Condition: Improved Disposition: HOME OR SELF-CARE Referrals: ROXANNE ROSS MD (PCP) New Scripts Hydrocodone Bit/Acetaminophen (HYDROCODON-ACETAMINOPHEN 5-325) 1 Each Tablet 1 EACH PO Q4-6H PRN for PAIN, #8 TAB Prov: LIU BEDOLLA 01/15/19 Ondansetron 4 Mg Odt (ONDANSETRON 4 MG ODT) 4 Mg Tab.rapdis 4 MG PO Q6H PRN for NAUSEA/VOMITING, #20 TAB Prov: LIU BEDOLLA 01/15/19 Ciprofloxacin Hcl 500 Mg Tab (CIPRO 500 MG TAB) 500 Mg Tablet 500 MG PO BID, #14 TAB Prov: LIU BEDOLLA 01/15/19 Patient Instructions: Kidney Infection (ED) Additional Instructions: Increase fluid intake. Get plenty of rest. Take your medication as prescribed. Return to the ER if condition worsens. Take Ibuprofen as needed for fevers. Limit activity by pain. Follow up with a provider for reevaluation towards the end of this week. LIU BEDOLLA Jan 15, 2019 16:40
[2019-01-15] MEDS ORDERED: IOPAMIDOL 76% 150 ML INFUS BTL 150 ML ONE (16:50)
[2019-01-15 17:07] LABS: PLATELET COUNT, AUTOMATED 398 K/uL (150-450)
[2019-01-15] MEDS ORDERED: cefTRIAXone(*) 1 GM VIAL 1 GM in NS(*) 0.9% 100 ML MINI-BAG 100 ML IVPB ONE (17:40)
--- NOTE | 2019-01-15 17:41 | RADIOLOGY IMAGING REPORT ---
FACILITY: [facility] PATIENT NAME: Sheryl Hurd : 1985 MR: [id number] V: [id number] EXAM DATE: ORDERING PHYSICIAN: LIU BEDOLLA TECHNOLOGIST: [facility] Patient: Sheryl Hurd : 1985 Visit/Account:[id number] Date of Sevice: 01/15/2019 COMPUTED TOMOGRAPHY OF THE Abdomen and Pelvis with CONTRAST INDICATION: Right flank pain. TECHNIQUE: Contiguous axial 3.[address] images were obtained through the abdomen and pelvis after 75 m L [id number]. Coronal and sagittal reformatted images were submitted. COMPARISON: CT abdomen and pelvis August 07, 2018. FINDINGS: Lung bases: The lung bases are clear with only trace atelectasis. Liver and hepatic vasculature: Minimal fatty infiltration adjacent to the falciform. No focal lesio n. Gallbladder and bile ducts: Surgically absent gallbladder. Mild prominence of the common bile duct in keeping with cholecystectomy. Spleen: Normal Pancreas: Normal Adrenals: Normal Kidneys, ureters and bladder: There is heterogeneous enhancement of the right renal parenchyma with some haziness and stranding adjacent to the right kidney and right ureter. No stone or obstruction. Normal appearing bladder.. Nonobstructive 4 to 5 mm left renal calculus. Normal left renal enhance ment. Retroperitoneum and aorta: Normal caliber aorta. GI tract, mesentery and peritoneum: Normal appendix. Liquid stool in the right colon may correlate w ith diarrhea history. Uterus and adnexa: Unremarkable uterus. Bones and soft tissues: No acute osseous abnormality. IMPRESSION: 1. Heterogeneous enhancement of the right kidney and mild perinephric stranding suggest pyelonephrit is. No obstructive stone. 2. Small amount of liquid stool in the right colon may correlate with a diarrhea history. One of the following dose optimization techniques was utilized in the performance of this exam: Autom ated exposure control; adjustment of the mA and/or kV according to the patient's size; or use of an i terative reconstruction technique. Specific details can be referenced in the facility's radiology C T exam operational policy. Report Dictated By: Hugo Higgins MD at 01/15/2019 5:27 PM Report E-Signed By: Hugo Higgins MD at 01/15/2019 5:37 PM [id number]:[email or web address]
[2019-01-15] MEDS ORDERED: ONDA4TAB9 PO (18:24)
[2019-01-15] MEDS ORDERED: CIPR-344 PO (18:24)
[2019-01-15] MEDS ORDERED: HYDR-385 PO (18:24)
[2019-01-15] MEDS ORDERED: ACETAMINOPHEN 500 MG TAB PO ONE (18:30)
[2019-01-15] MEDS ORDERED: ALBUTEROL/IPRATROPIUM 3 ML NEB NEB ONE (18:50)
[2019-01-15 19:30] VITALS: BP 132/71
[2019-01-15] MEDS ORDERED: ACET/HYDROC 5/325MG TH ER ONLY 2 TAB/BOTTLE PO ONE (19:35)
[2019-01-15] MEDS ORDERED: ONDANSETRON 4 MG ODT TH SL ONE (19:35)
== END 2019-01-15 19:35 | disposition home or self-care (01) ==
LOC: ER 16:14
DX: N11.1 Chronic obstructive pyelonephritis (principal); F17.210 Nicotine dependence, cigarettes, uncomplicated
CPT/HCPCS: 74177; 81001; 83605; 85025; 85651; 86140; 87088; 94640; 96361; 96365; 96375; 96376; 99284; J0696; J2270; J2405; J7030; J7620; Q9967; S0119; 82040; 82247; 82310; 82374; 82435; 82565; 82947; 84075; 84132; 84155; 84295; 84450; 84460; 84520

== ENCOUNTER 2019-03-06 14:41 | Emergency (ER) | payer MEDICAID ==
[2016-04-14 16:53] VITALS: Wt 96.2 kg
[~2019-03-06 14:41] MED LIST changes: +HYDR-385 PO; +ONDA4TAB9 PO
--- NOTE | 2019-03-06 14:54 | ER Report ---
History and Physical Time Seen By MD: 14:51 Hx. of Stated Complaint: Pt. has been feeling bad for 3 days. Productive cough with green sputum. Unsure if she has had a fever, but has periods of being hot and cold. Temp 99 in triage. Chest feels tight, and she has been vomiting due to coughing. Pt. has history of asthma. HPI/ROS CHIEF COMPLAINT: Cough, vomiting HISTORY OF PRESENT ILLNESS: 33 year old female presents to ED with cough for three days. Reports cough has been so bad that it causes her to vomit. She vomit s up her food and then green sputum. Reports she has been using her nebulizer treatments every four hours with no relief in symptoms. Also reports generalized chest pain that ramirez. Reports associated symptoms of low grade fever, chills. No other treatments tried. REVIEW OF SYSTEMS: Constitutional: Reports low grade fever, chills, clammy skin. No change in appetite. HENT: Reports hoarseness. Mild headache. No dizziness. No blurry vision. Respiratory: Reports cough and dyspnea. Generalized chest pain- feels like a burning sensation. Cardiovascular: Generalized chest pain- feels like a burning sensation. No palpitations. Gastrointestinal: Vomiting due to coughing. No abdominal pain. No constipation or diarrhea. Musculoskeletal: Back pain due to coughing. Allergies: Coded Allergies: meloxicam (Verified Allergy, Unknown, anxiety, 03/06/19) Home Meds Active Scripts Prednisone (PREDNISONE) 20 Mg Tablet, 40 MG PO DAILY for 5 Days, #10 TAB Prov:LIU BEDOLLA 03/06/19 Azithromycin 250 Mg Tab (AZITHROMYCIN 250 MG TAB) 250 Mg Tablet, 1 TAB PO QDAY, #6 TAB Take 2 tabs today and then 1 tab a day until gone. Prov:LIU BEDOLLA 03/06/19 Ipratropium/Albuterol Sulfate (IPRAT-ALBUT 0.5-3(2.5) MG/3 ML) 3 Ml Ampul.neb, 3 ML IH Q4-6H PRN for SHORTNESS OF BREATH, #20 VIAL Prov:LIU BEDOLLA 03/06/19 Ondansetron 4 Mg Odt (ONDANSETRON 4 MG ODT) 4 Mg Tab.rapdis, 4 MG PO Q6H PRN for NAUSEA/VOMITING, #20 TAB Prov:LIU BEDOLLAP 01/15/19 Albuterol Sul Hfa 90 Mcg 8 Gm (VENTOLIN HFA 90 MCG 8 GM) 8.5 Gm Hfa.aer.ad, 2 PUFF IH Q4-6H, #1 Prov:BRIAN MENDOZA DO 12/06/14 Discontinued Scripts Hydrocodone Bit/Acetaminophen (HYDROCODON-ACETAMINOPHEN 5-325) 1 Each Tablet, 1 EACH PO Q4-6H PRN for PAIN, #8 TAB Prov:LIU BEDOLLA [employer] 01/15/19 Ciprofloxacin Hcl 500 Mg Tab (CIPRO 500 MG TAB) 500 Mg Tablet, 500 MG PO BID, # 14 TAB Prov:LIU BEDOLLA [facility] 01/15/19 Cefuroxime Axetil (CEFUROXIME) 500 Mg Tablet, 500 MG PO BID for infection, #20 TAB Prov:BK MACHADO DO 01/14/19 Past Medical/Surgical History Past medical hx of asthma, scarred kidneys and left kidney malformation, frequent UTIs, psoriasis, depression, and anxiety. Past surgical hx of tubal ligation, left fallopian tube and left ovary removal, cholecystectomy in 2008, . Reviewed Nurses Notes: Yes Hx Smoking: Yes (10-12 PER DAY 9 YEARS) Smoking Status: Current: Every Day Smoker Exposure to Second Hand Smoke?: Yes (15) Hx Substance Use Disorder: No Hx Alcohol Use: Yes (RARELY) Constitutional Vital Sign - Last 24 Hours 03/06/19 03/06/19 03/06/19 03/06/19 14:45 14:45 14:46 14:51 Temp 99.0 Pulse 86 88 85 Resp 16 B/P (MAP) 129/81 (97) 129/81 Pulse Ox 87 88 96 O2 Delivery Room Air 03/06/19 03/06/19 03/06/19 03/06/19 14:56 15:00 15:01 15:06 Pulse 88 79 87 B/P (MAP) 129/86 (100) Pulse Ox 92 93 89 03/06/19 03/06/19 03/06/19 03/06/19 15:11 15:12 15:12 15:16 Pulse 76 80 83 Resp 18 Pulse Ox 99 92 94 O2 Delivery Nasal Cannula O2 Flow Rate 1.0 03/06/19 03/06/19 03/06/19 03/06/19 15:30 15:31 15:36 15:41 Pulse 72 81 73 B/P (MAP) 110/64 (79) Pulse Ox 94 92 95 Physical Exam General Appearance: The patient is alert, has no immediate need for airway protection and no current signs of toxicity. Eyes: Pupils equal and round no injection. Respiratory: Chest is non tender, lungs are clear to auscultation. Cardiac: regular rate and rhythm Gastrointestinal: Abdomen is soft and non tender, no masses, bowel sounds normal. Musculoskeletal: Neck: Neck is supple and non tender. Extremities have full range of motion and are non tender. Skin: No rashes or lesions. Skin is clammy and diaphoretic. DIFFERENTIAL DIAGNOSIS: After history and physical exam differential diagnosis was considered for pneumonia, upper respiratory infection, bronchitis. Medical Decision Making Data Points Result Diagram: 03/06/19 1501 03/06/19 1501 Laboratory Hematology Test 03/06/19 15:01 Red Blood Count 5.51 M/uL (4.17-5.56) Mean Corpuscular Volume 80.5 fL (80.0-96.0) Mean Corpuscular Hemoglobin 25.9 pg (26.0-33.0) Mean Corpuscular Hemoglobin Concent 32.2 g/dL (32.0-36.0) Red Cell Distribution Width 15.0 % (11.5-14.5) Mean Platelet Volume 7.9 fL (7.2-11.1) Neutrophils (%) (Auto) 91.6 % (39.4-72.5) Lymphocytes (%) (Auto) 5.5 % (17.6-49.6) Monocytes (%) (Auto) 2.5 % (4.1-12.4) Eosinophils (%) (Auto) 0.2 % (0.4-6.7) Basophils (%) (Auto) 0.2 % (0.3-1.4) Nucleated RBC Relative Count (auto) 0.1 /100WBC Neutrophils # (Auto) 13.6 K/uL (2.0-7.4) Lymphocytes # (Auto) 0.8 K/uL (1.3-3.6) Monocytes # (Auto) 0.4 K/uL (0.3-1.0) Eosinophils # (Auto) 0.0 K/uL (0.0-0.5) Basophils # (Auto) 0.0 K/uL (0.0-0.1) Nucleated RBC Absolute Count (auto) 0.01 K/uL Peripheral Blood Smear Yes Y/N Sodium Level 141 mmol/L (137-145) Potassium Level 4.6 mmol/L (3.5-5.0) Chloride Level 103 mmol/L (98-107) Carbon Dioxide Level 24 mmol/L (22-31) Blood Urea Nitrogen 15 mg/dl (7-18) Creatinine 1.10 mg/dl (0.52-1.04) Glomerular Filtration Rate Calc 56.5 Random Glucose 292 mg/dl (75-110) Calcium Level 9.8 mg/dl (8.4-10.2) Total Bilirubin 0.2 mg/dl (0.2-1.3) Aspartate Amino Transf (AST/SGOT) 16 U/L (0-35) Alanine Aminotransferase (ALT/SGPT) 28 U/L (0-56) Alkaline Phosphatase 101 U/L (0-126) Troponin I < 0.012 ng/ml Total Protein 8.1 g/dl (6.3-8.2) Albumin 4.4 g/dl (3.5-5.0) Chemistry Test 03/06/19 15:01 White Blood Count 14.9 k/uL (4.5-11.0) Red Blood Count 5.51 M/uL (4.17-5.56) Hemoglobin 14.3 g/dL (12.0-16.0) Hematocrit 44.4 % (34.0-47.0) Mean Corpuscular Volume 80.5 fL (80.0-96.0) Mean Corpuscular Hemoglobin 25.9 pg (26.0-33.0) Mean Corpuscular Hemoglobin Concent 32.2 g/dL (32.0-36.0) Red Cell Distribution Width 15.0 % (11.5-14.5) Platelet Count 423 K/uL (150-450) Mean Platelet Volume 7.9 fL (7.2-11.1) Neutrophils (%) (Auto) 91.6 % (39.4-72.5) Lymphocytes (%) (Auto) 5.5 % (17.6-49.6) Monocytes (%) (Auto) 2.5 % (4.1-12.4) Eosinophils (%) (Auto) 0.2 % (0.4-6.7) Basophils (%) (Auto) 0.2 % (0.3-1.4) Nucleated RBC Relative Count (auto) 0.1 /100WBC Neutrophils # (Auto) 13.6 K/uL (2.0-7.4) Lymphocytes # (Auto) 0.8 K/uL (1.3-3.6) Monocytes # (Auto) 0.4 K/uL (0.3-1.0) Eosinophils # (Auto) 0.0 K/uL (0.0-0.5) Basophils # (Auto) 0.0 K/uL (0.0-0.1) Nucleated RBC Absolute Count (auto) 0.01 K/uL Peripheral Blood Smear Yes Y/N Glomerular Filtration Rate Calc 56.5 Calcium Level 9.8 mg/dl (8.4-10.2) Total Bilirubin 0.2 mg/dl (0.2-1.3) Aspartate Amino Transf (AST/SGOT) 16 U/L (0-35) Alanine Aminotransferase (ALT/SGPT) 28 U/L (0-56) Alkaline Phosphatase 101 U/L (0-126) Troponin I < 0.012 ng/ml Total Protein 8.1 g/dl (6.3-8.2) Albumin 4.4 g/dl (3.5-5.0) EKG/Imaging Imaging Findings: The lungs are free of acute effusions, infiltrates or edema. There is no evidence of a pneumothorax or pneumomediastinum. The trachea is in midline. T he cardiac silhouette is normal in size.. IMPRESSION: 1. No acute cardiopulmonary process seen ED Course/Re-evaluation ED Course Upon arrival to the ED, patient admitted to an exam room, hx and physical obtained, differentials considered. Patient reports cough has been so bad that it causes her to vomit. She vomits up her food and then green sputum. Reports carline robertson has been using her nebulizer treatments every four hours with no relief in symptoms. Also reports generalized chest pain that ramirez. Reports associated symptoms of low grade fever, chills. No other treatments tried. Reports clammy skin, shortness of breath. On exam, lungs are clear, heart rate and rhythm normal, no abdominal pain. IV started, 1L NS infused. CBC, CMP, UA, troponin, chest x-ray ordered. Duoneb ordered. CBC showed WBC at 14.9 and neutrophils at 91.6%. Other lab work was benign. The radiologist read the chest x-ray as no acute cardiopulmonary process. However, on my evaluation of the chest x-ray I felt there was an area of consolidation in the right middle lobe. Will treat for a pneumonia. Patient reports she felt like her breathing improved after the Duoneb. Will send patient home with prescriptions for Duoneb, prednisone, and azithromycin. Patient agrees with plan of care. Decision to Disposition Date: Mar 06, 2019 Decision to Disposition Time: 16:03 Depart Departure Latest Vital Signs Vital Signs Date Time Temp Pulse Resp B/P (MAP) Pulse Ox O2 Delivery O2 Flow Rate FiO2 03/06/19 15:41 73 95 03/06/19 15:30 110/64 (79) 03/06/19 15:12 18 03/06/19 15:12 Nasal Cannula 1.0 03/06/19 14:45 99.0 Impression: Primary Impression: Pneumonia Condition: Improved Disposition: HOME OR SELF-CARE Referrals: ROXANNE ROSS MD (PCP) New Scripts Prednisone (PREDNISONE) 20 Mg Tablet 40 MG PO DAILY for 5 Days, #10 TAB Prov: LIU BEDOLLA 03/06/19 Azithromycin 250 Mg Tab (AZITHROMYCIN 250 MG TAB) 250 Mg Tablet 1 TAB PO QDAY, #6 TAB Take 2 tabs today and then 1 tab a day until gone. Prov: LIU BEDOLLA 03/06/19 Ipratropium/Albuterol Sulfate (IPRAT-ALBUT 0.5-3(2.5) MG/3 ML) 3 Ml Ampul.neb 3 ML IH Q4-6H PRN for SHORTNESS OF BREATH, #20 VIAL Prov: LIU BEDOLLA 03/06/19 Patient Instructions: Bacterial Pneumonia (ED) Additional Instructions: Please drink plenty of water and get plenty of rest. Take 2 tabs of your antibiotic today, then 1 tab until they are gone. Take 40mg of prednisone once a day for 5 days. Follow-up with your primary care provider by Monday. Return to the ER if your cough worsens, you develop worsening chest pain, or for any other concerns. Problem Qualifiers Primary Impression: Pneumonia Aspiration pneumonia type: unspecified Laterality: right Lung location: middle lobe of lung LIU BEDOLLA [employer] Mar 06, 2019 14:54
[2019-03-06] MEDS ORDERED: NS(*) 0.9% 1000 ML BAG 1,000 ML IV ONE (15:00)
[2019-03-06] MEDS ORDERED: ALBUTEROL/IPRATROPIUM 3 ML NEB NEB ONE (15:05)
[2019-03-06 15:08] LABS: PLATELET COUNT, AUTOMATED 423 K/uL (150-450)
[2019-03-06 15:30] VITALS: BP 110/64
--- NOTE | 2019-03-06 15:47 | RADIOLOGY IMAGING REPORT ---
FACILITY: [facility] - [place] PATIENT NAME: Sheryl Hurd : 1985 MR: [id number] V: [id number] EXAM DATE: ORDERING PHYSICIAN: LIU BEDOLLA TECHNOLOGIST: Location: [facility] Patient: Sheryl Hurd : 1985 Visit/Account:[id number] Date of Sevice: 03/06/2019 Exam type: CHEST PA LAT History: Cough, SOB Comparison: January 14, 2019 Findings: The lungs are free of acute effusions, infiltrates or edema. There is no evidence of a pneumothorax or pneumomediastinum. The trachea is in midline. The cardiac silhouette is normal in size.. IMPRESSION: 1. No acute cardiopulmonary process seen Report Dictated By: Carole Soto MD at 03/06/2019 3:42 PM Report E-Signed By: Carole Soto MD at 03/06/2019 3:43 PM WSN:[email or web address]
[2019-03-06] MEDS ORDERED: PRED20TA6 PO (16:01)
[2019-03-06] MEDS ORDERED: AZIT-18 PO (16:01)
[2019-03-06] MEDS ORDERED: IPRA3AMP10 IH (16:01)
== END 2019-03-06 16:11 | disposition home or self-care (01) ==
LOC: ER 14:45
DX: F17.210 Nicotine dependence, cigarettes, uncomplicated (principal); J18.1 Lobar pneumonia, unspecified organism
CPT/HCPCS: 71046; 84484; 85025; 94640; 96360; 99283; J7030; J7620; 82040; 82247; 82310; 82374; 82435; 82565; 82947; 84075; 84132; 84155; 84295; 84450; 84460; 84520

== ENCOUNTER 2019-03-14 17:06 | Emergency (ER) | payer SELFPAY ==
[2016-04-14 16:53] VITALS: BMI 35.6
[~2019-03-14 17:06] MED LIST changes: +AZIT-18 PO; +IPRA3AMP10 IH
--- NOTE | 2019-03-14 17:38 | ER Report ---
History and Physical Time Seen By MD: 17:38 HPI/ROS CHIEF COMPLAINT: pneumonia HISTORY OF PRESENT ILLNESS: This a patient seen last week. Continued cough, wheezing. Seemed to be better while on Prednisone burst. Azithromycin last time for possible pneumonia, reviewed chest x-ray, reading is no acute process. Patient took two albuterol treatments at home without improvement. No fevers or chills noted. Has asthma. Still smoking. Has chest pressure. Green sputum with cough. Allergies: Coded Allergies: meloxicam (Verified Allergy, Unknown, anxiety, 03/06/19) Home Meds Active Scripts Guaifenesin/Codeine Phosphate (Codeine-Guaifen 10-100 mg/5 ml) 120 Ml Liquid, 1 TSP PO Q4H PRN for COUGH, #120 ML 0 Refills Prov:ISAI DEMPSEY MD 03/14/19 Prednisone (PREDNISONE) 20 Mg Tablet, 20 MG PO DIRECTED, #26 TAB 0 Refills Take 3 tablets once a day for 4 days, then take 2 tablets once a day for 4 days, then take 1 tablet once a day for 4 days, then take 1/2 tablet once a day for 4 days, then stop. Prov:ISAI DEMPSEY MD 03/14/19 Prednisone (PREDNISONE) 20 Mg Tablet, 40 MG PO DAILY for 5 Days, #10 TAB Prov:LIU BEDOLLA 03/06/19 Azithromycin 250 Mg Tab (AZITHROMYCIN 250 MG TAB) 250 Mg Tablet, 1 TAB PO QDAY, #6 TAB Take 2 tabs today and then 1 tab a day until gone. Prov:LIU BEDOLLA 03/06/19 Ipratropium/Albuterol Sulfate (IPRAT-ALBUT 0.5-3(2.5) MG/3 ML) 3 Ml Ampul.neb, 3 ML IH Q4-6H PRN for SHORTNESS OF BREATH, #20 VIAL Prov:LIU BEDOLLA 03/06/19 Ondansetron 4 Mg Odt (ONDANSETRON 4 MG ODT) 4 Mg Tab.rapdis, 4 MG PO Q6H PRN for NAUSEA/VOMITING, #20 TAB Prov:LIU BEDOLLA 01/15/19 Albuterol Sul Hfa 90 Mcg 8 Gm (VENTOLIN HFA 90 MCG 8 GM) 8.5 Gm Hfa.aer.ad, 2 PUFF IH Q4-6H, #1 Prov:BRIAN MENDOZA DO 12/06/14 Reviewed Nurses Notes: Yes Hx Smoking: Yes (10-12 PER DAY 9 YEARS) Smoking Status: Current: Every Day Smoker Exposure to Second Hand Smoke?: Yes (15) Hx Substance Use Disorder: No Hx Alcohol Use: Yes (RARELY) Constitutional Vital Sign - Last 24 Hours 03/14/19 03/14/19 03/14/19 03/14/19 17:34 17:56 17:56 18:02 Temp 98.4 Pulse 108 93 104 Resp 18 18 18 B/P (MAP) 115/79 Pulse Ox 93 92 O2 Delivery Room Air Room Air Physical Exam General Appearance: The patient is alert. Eyes: Pupils are equal, round. No pallor, injection or icterus. ENT: Mucous membranes are moist. Normal oral mucosa. Posterior oropharynx is normal. Neck: Supple and non tender. Respiratory: Lungs with wheezing, poor air movement. No rales. There are no retractions or accessory muscle use. Cardiovascular: Regular rate and rhythm. No murmurs, gallops or rubs. Gastrointestinal: Abdomen is soft and non tender. Neurological: Alert and oriented x3. Skin: Warm and dry. DIFFERENTIAL DIAGNOSIS: After history and physical exam, differential diagnosis was considered for cough ongoing, some improvement with prednisone, likely viral bronchitis with asthma exacerbation. Medical Decision Making Data Points Result Diagram: 03/14/19 1824 03/14/19 1824 Laboratory Hematology Test 03/14/19 18:24 Red Blood Count 5.58 M/uL (4.17-5.56) Mean Corpuscular Volume 79.6 fL (80.0-96.0) Mean Corpuscular Hemoglobin 26.4 pg (26.0-33.0) Mean Corpuscular Hemoglobin Concent 33.1 g/dL (32.0-36.0) Red Cell Distribution Width 14.9 % (11.5-14.5) Mean Platelet Volume 7.5 fL (7.2-11.1) Neutrophils (%) (Auto) 80.0 % (39.4-72.5) Lymphocytes (%) (Auto) 9.6 % (17.6-49.6) Monocytes (%) (Auto) 5.8 % (4.1-12.4) Eosinophils (%) (Auto) 4.0 % (0.4-6.7) Basophils (%) (Auto) 0.6 % (0.3-1.4) Nucleated RBC Relative Count (auto) 0.0 /100WBC Neutrophils # (Auto) 14.0 K/uL (2.0-7.4) Lymphocytes # (Auto) 1.7 K/uL (1.3-3.6) Monocytes # (Auto) 1.0 K/uL (0.3-1.0) Eosinophils # (Auto) 0.7 K/uL (0.0-0.5) Basophils # (Auto) 0.1 K/uL (0.0-0.1) Nucleated RBC Absolute Count (auto) 0.00 K/uL Sodium Level 138 mmol/L (137-145) Potassium Level 3.5 mmol/L (3.5-5.0) Chloride Level 108 mmol/L (98-107) Carbon Dioxide Level 20 mmol/L (22-31) Blood Urea Nitrogen 14 mg/dl (7-18) Creatinine 0.80 mg/dl (0.52-1.04) Glomerular Filtration Rate Calc > 60.0 Random Glucose 170 mg/dl (75-110) Calcium Level 8.8 mg/dl (8.4-10.2) Total Bilirubin 0.3 mg/dl (0.2-1.3) Aspartate Amino Transf (AST/SGOT) 23 U/L (0-35) Alanine Aminotransferase (ALT/SGPT) 32 U/L (0-56) Alkaline Phosphatase 80 U/L (0-126) Total Protein 7.2 g/dl (6.3-8.2) Albumin 4.0 g/dl (3.5-5.0) Chemistry Test 03/14/19 18:24 White Blood Count 17.5 k/uL (4.5-11.0) Red Blood Count 5.58 M/uL (4.17-5.56) Hemoglobin 14.7 g/dL (12.0-16.0) Hematocrit 44.4 % (34.0-47.0) Mean Corpuscular Volume 79.6 fL (80.0-96.0) Mean Corpuscular Hemoglobin 26.4 pg (26.0-33.0) Mean Corpuscular Hemoglobin Concent 33.1 g/dL (32.0-36.0) Red Cell Distribution Width 14.9 % (11.5-14.5) Platelet Count 458 K/uL (150-450) Mean Platelet Volume 7.5 fL (7.2-11.1) Neutrophils (%) (Auto) 80.0 % (39.4-72.5) Lymphocytes (%) (Auto) 9.6 % (17.6-49.6) Monocytes (%) (Auto) 5.8 % (4.1-12.4) Eosinophils (%) (Auto) 4.0 % (0.4-6.7) Basophils (%) (Auto) 0.6 % (0.3-1.4) Nucleated RBC Relative Count (auto) 0.0 /100WBC Neutrophils # (Auto) 14.0 K/uL (2.0-7.4) Lymphocytes # (Auto) 1.7 K/uL (1.3-3.6) Monocytes # (Auto) 1.0 K/uL (0.3-1.0) Eosinophils # (Auto) 0.7 K/uL (0.0-0.5) Basophils # (Auto) 0.1 K/uL (0.0-0.1) Nucleated RBC Absolute Count (auto) 0.00 K/uL Glomerular Filtration Rate Calc > 60.0 Calcium Level 8.8 mg/dl (8.4-10.2) Total Bilirubin 0.3 mg/dl (0.2-1.3) Aspartate Amino Transf (AST/SGOT) 23 U/L (0-35) Alanine Aminotransferase (ALT/SGPT) 32 U/L (0-56) Alkaline Phosphatase 80 U/L (0-126) Total Protein 7.2 g/dl (6.3-8.2) Albumin 4.0 g/dl (3.5-5.0) EKG/Imaging Imaging Examination: CHEST PA LAT Comparison: 03/06/2019 and earlier. History: cough, wheezing Findings: Mild peribronchial thickening particularly in the infrahilar lungs. No consolidation. No pneumothorax, edema, or effusion. Cardiac and hilar contour size is normal. Osseous structures are intact. IMPRESSION: Mild peribronchial thickening particularly in the infrahilar lungs is suggestive of a bronchitis or potentially reactive airway disease. No consolidation. Report Dictated By: Abram Mariscal MD at 03/14/2019 6:22 PM ED Course/Re-evaluation ED Course 3 back to back Albuterol treatment and IV Solu-Medrol 125mg. Some improvement. No sign of pneumonia on x-ray. Discussed diagnosis of Viral bronchitis, asthma exacerbation, and smoking cessation with the patient. Started a longer Pred nisone taper. Given Codeine with Guaifenesin for cough. Decision to Disposition Date: Mar 14, 2019 Decision to Disposition Time: 19:21 Depart Departure Latest Vital Signs Vital Signs Date Time Temp Pulse Resp B/P (MAP) Pulse Ox O2 Delivery O2 Flow Rate FiO2 03/14/19 18:02 104 18 03/14/19 17:56 92 Room Air 03/14/19 17:34 98.4 115/79 Impression: Primary Impression: Acute bronchitis, viral Additional Impression: Asthma exacerbation Condition: Improved Disposition: HOME OR SELF-CARE Referrals: ROXANNE ROSS MD (PCP) New Scripts Guaifenesin/Codeine Phosphate (Codeine-Guaifen 10-100 mg/5 ml) 120 Ml Liquid 1 TSP PO Q4H PRN for COUGH, #120 ML 0 Refills Prov: ISAI DEMPSEY MD 03/14/19 Prednisone (PREDNISONE) 20 Mg Tablet 20 MG PO DIRECTED, #26 TAB 0 Refills Take 3 tablets once a day for 4 days, then take 2 tablets once a day for 4 days, then take 1 tablet once a day for 4 days, then take 1/2 tablet once a day for 4 days, then stop. Prov: ISAI DEMPSEY MD 03/14/19 Patient Instructions: Acute Bronchitis (ED), How to Stop Smoking (ED) Additional Instructions: Need to continue to work on smoking cessation. Guaifenesin with Codeine, 1 tsp by mouth every 4 hours as needed for cough. Prednisone 20mg tablets, take 3 tablets once a day for 4 days, then take 2 tablets once a day for 4 days, then take 1 tablet once a day for 4 days, then take 1/2 tablet once a day for 4 days, then stop. Duoneb nebulizers every 4 hours. Albuterol nebulizers every 4 hours. Problem Qualifiers Additional Impression: Asthma exacerbation Asthma severity: severe Asthma persistence: persistent Qualified Codes: J45.51 - Severe persistent asthma with (acute) exacerbation ISAI DEMPSEY MD Mar 14, 2019 17:39
[2019-03-14] MEDS ORDERED: methylPREDNIS SUCC 125 MG/2ML IVP ONE (17:50)
[2019-03-14] MEDS ORDERED: ALBUTEROL 2.5 MG/3 ML NEB NEB ONE (17:50)
--- NOTE | 2019-03-14 18:29 | RADIOLOGY IMAGING REPORT ---
FACILITY: [facility] - [place] PATIENT NAME: Sheryl Hurd : 1985 MR: [id number] V: [id number] EXAM DATE: ORDERING PHYSICIAN: ISAI DEMPSEY TECHNOLOGIST: Location: [facility] - [place] Patient: Sheryl Hurd : 1985 Visit/Account:[id number] Date of Sevice: 03/14/2019 Examination: CHEST PA LAT Comparison: 03/06/2019 and earlier. History: cough, wheezing Findings: Mild peribronchial thickening particularly in the infrahilar lungs. No consolidation. No pn eumothorax, edema, or effusion. Cardiac and hilar contour size is normal. Osseous structures are inta ct. IMPRESSION: Mild peribronchial thickening particularly in the infrahilar lungs is suggestive of a bronchitis or p otentially reactive airway disease. No consolidation. Report Dictated By: Abram Mariscal MD at 03/14/2019 6:22 PM Report E-Signed By: Abram Mariscal MD at 03/14/2019 6:25 PM WSN:[id number]
[2019-03-14 18:41] LABS: PLATELET COUNT, AUTOMATED 458 K/uL (150-450)
[2019-03-14] MEDS ORDERED: GUAI120L3 PO (19:23)
[2019-03-14] MEDS ORDERED: PRED20TA6 PO (19:23)
[2019-03-14] MEDS ORDERED: predniSONE 20 MG TAB PO ONE (19:25)
[2019-03-14] MEDS ORDERED: guaiFENesin/CODEINE 5 ML UDBTL PO ONE (19:25)
[2019-03-14 19:30] VITALS: BP 110/72
== END 2019-03-14 19:42 | disposition home or self-care (01) ==
LOC: ER 17:39
DX: J20.8 Acute bronchitis due to other specified organisms (principal); J45.51 Severe persistent asthma with (acute) exacerbation; F17.210 Nicotine dependence, cigarettes, uncomplicated
CPT/HCPCS: 71046; 85025; 94640; 96374; 99283; J2930; J7512; J7613; 82040; 82247; 82310; 82374; 82435; 82565; 82947; 84075; 84132; 84155; 84295; 84450; 84460; 84520

== ENCOUNTER → 2019-05-16 | Outpatient (CLI) | payer MEDICAID ==
[2016-04-14 16:53] VITALS: BMI 35.6
[~2019-05-16] MED LIST changes: +GUAI120L3 PO
--- NOTE | 2019-05-16 15:47 | RADIOLOGY IMAGING REPORT ---
FACILITY: [facility] PATIENT NAME: Sheryl Hurd : 1985 MR: [id number] V: [id number] EXAM DATE: ORDERING PHYSICIAN: LAURO LYNCH TECHNOLOGIST: Location: [facility] - [place] Patient: Sheryl Hurd : 1985 Visit/Account:[id number] Date of Sevice: 05/16/2019 PELVIC HISTORY: Right lower quadrant pain radiating down right leg since tubal ligation TECHNIQUE: Transvaginal and transabdominal ultrasound pelvis. COMPARISON: Pelvic ultrasound December 03, 2018 FINDINGS: Uterus: ; 10 cm length x 5.1 cm AP x 7.3 cm transverse. Myometrium: There is a scar identified anteriorly. Endometrium: Unremarkable; double thickness 8.1 mm. Cervix: Numerous nabothian cysts. Ovaries: Right - 5.5 x 5.6 x 5.4 cm. There is a 5. 4.7 x 5.2 x 5.6 cm simple right ovarian cyst. This h as increased in size from 1.8 cm previously Left - surgically removed Blood flow is documented in the right ovary by duplex Doppler ultrasound. Adnexa: Grossly unremarkable. Free pelvic fluid: None. IMPRESSION: Multiple nabothian cysts 4.7 x 5.2 x 5.6 cm simple right ovarian cyst which is increased in size when compared to the prior pe lvic ultrasound Report Dictated By: Carole Soto MD at 05/16/2019 3:33 PM Report E-Signed By: Carole Soto MD at 05/16/2019 3:39 PM WSN:[email or web address]
== END ==
LOC: US 02:09
PROVIDERS: ATTEND Nurse Practitioner Family
DX: N88.8 Other specified noninflammatory disorders of cervix uteri (principal); N83.201 Unspecified ovarian cyst, right side
CPT/HCPCS: 76830; 76856

== ENCOUNTER 2019-05-21 19:50 | Emergency (ER) | payer MEDICAID ==
[2016-04-14 16:53] VITALS: Wt 99.8 kg
[2019-05-21 20:10] VITALS: BP 121/86
--- NOTE | 2019-05-21 20:10 | ER Report ---
History and Physical Time Seen By MD: 20:02 HPI/ROS CHIEF COMPLAINT: Ovarian cyst pain HISTORY OF PRESENT ILLNESS: This is a 33-year-old female who presents to the emergency room for ovarian cyst pain. Patient states that she has recurrent prob lems with an ovarian cyst on her right side, she had a pelvic ultrasound done on 05/16/2019 showing a right-sided ovarian cyst that is increasing in size. She states he's been on gabapentin for the pain on the right is also shooting down her right leg, they did "take her off the gabapentin", so she has nothing for the pain, she denies urinary symptoms, normal bowel movements, no fevers or chills other than her usual fever and chills since her tubal ligation 3 years ago. She also states that the right abdominal pain began 3 years ago after her ligation. No rashes, no chest pain or shortness of breath, no other complaints at this time. REVIEW OF SYSTEMS: Constitutional: As above Eyes: No discharge. ENT: No sore throat. Cardiovascular: No chest pain, no palpitations. Respiratory: No cough, no shortness of breath. Gastrointestinal: As above. Genitourinary: No hematuria. Musculoskeletal: No back pain. Skin: No rashes. Neurological: No headache. Allergies: Coded Allergies: meloxicam (Verified Allergy, Unknown, anxiety, 05/21/19) Home Meds Active Scripts Hydrocodone Bit/Acetaminophen (HYDROCODON-ACETAMINOPHEN 5-325) 1 Each Tablet, 1 EACH PO Q4-6H PRN for PAIN, #6 TAB 0 Refills Prov:FORD COOLEY INDUSTRI[employer] HYGIENE ENGINEER- 05/21/19 Guaifenesin/Codeine Phosphate (Codeine-Guaifen 10-100 mg/5 ml) 120 Ml Liquid, 1 TSP PO Q4H PRN for COUGH, #120 ML 0 Refills Prov:ISAI DEMPSEY MD 03/14/19 Prednisone (PREDNISONE) 20 Mg Tablet, 20 MG PO DIRECTED, #26 TAB 0 Refills Take 3 tablets once a day for 4 days, then take 2 tablets once a day for 4 days, then take 1 tablet once a day for 4 days, then take 1/2 tablet once a day for 4 days, then stop. Prov:ISAI DEMPSEY MD 03/14/19 Prednisone (PREDNISONE) 20 Mg Tablet, 40 MG PO DAILY for 5 Days, #10 TAB Prov:LIU BEDOLLA [facility] 03/06/19 Azithromycin 250 Mg Tab (AZITHROMYCIN 250 MG TAB) 250 Mg Tablet, 1 TAB PO QDAY, #6 TAB Take 2 tabs today and then 1 tab a day until gone. Prov:LIU BEDOLLA [facility] 03/06/19 Ipratropium/Albuterol Sulfate (IPRAT-ALBUT 0.5-3(2.5) MG/3 ML) 3 Ml Ampul.neb, 3 ML IH Q4-6H PRN for SHORTNESS OF BREATH, #20 VIAL Prov:LIU BEDOLLA [facility] 03/06/19 Ondansetron 4 Mg Odt (ONDANSETRON 4 MG ODT) 4 Mg Tab.rapdis, 4 MG PO Q6H PRN for NAUSEA/VOMITING, #20 TAB Prov:LIU BEDOLLA [facility] 01/15/19 Albuterol Sul Hfa 90 Mcg 8 Gm (VENTOLIN HFA 90 MCG 8 GM) 8.5 Gm Hfa.aer.ad, 2 PUFF IH Q4-6H, #1 Prov:BRIAN MENDOZA DO 12/06/14 Past Medical/Surgical History Patient has a past medical and surgical history of intermittent asthma, wears glasses, , blood transfusion secondary to , psoriasis, depression, anxiety, cholecystectomy, tubal ligation. Reviewed Nurses Notes: Yes Hx Smoking: Yes (10-12 PER DAY 9 YEARS) Smoking Status: Current: Every Day Smoker Exposure to Second Hand Smoke?: Yes (15) Hx Substance Use Disorder: No Hx Alcohol Use: Yes (RARELY) Constitutional Vital Sign - Last 24 Hours 05/21/19 20:10 Temp 99.0 Pulse 87 Resp 16 B/P (MAP) 121/86 Pulse Ox 93 O2 Delivery Room Air Physical Exam General Appearance: The patient is alert, has no immediate need for airway protection and no signs of toxicity. Eyes: Pupils equal and round no pallor or injection. ENT, Mouth: Mucous membranes are moist. Respiratory: There are no retractions, lungs are clear to auscultation. Cardiovascular: Regular rate and rhythm. Gastrointestinal: Abdomen is soft and non tender, no masses, bowel sounds normal. Neurological: Alert and oriented for. Moving all extremities. Following all com mands. No focal neuro deficits per Skin: Warm and dry, no rashes. Musculoskeletal: Neck is supple non tender. Extremities are nontender, nonswollen and have full range of motion. DIFFERENTIAL DIAGNOSIS: After history and physical exam differential diagnosis was considered for urinary tract infection, pyelonephritis, ovarian cyst, bowel obstruction, gastroenteritis. Medical Decision Making Data Points Result Diagram: 05/21/19202505/21/192025 Laboratory Hematology Test 05/21/19 20:26 White Blood Count 10.3 k/uL (4.5-11.0) Red Blood Count 5.66 M/uL (4.17-5.56) H Hemoglobin 15.4 g/dL (12.0-16.0) Hematocrit 45.5 % (34.0-47.0) Mean Corpuscular Volume 80.4 fL (80.0-96.0) Mean Corpuscular Hemoglobin 27.1 pg (26.0-33.0) Mean Corpuscular Hemoglobin Concent 33.7 g/dL (32.0-36.0) Red Cell Distribution Width 15.3 % (11.5-14.5) H Platelet Count 397 K/uL (150-450) Mean Platelet Volume 7.9 fL (7.2-11.1) Neutrophils (%) (Auto) 59.6 % (39.4-72.5) Lymphocytes (%) (Auto) 21.7 % (17.6-49.6) Monocytes (%) (Auto) 8.1 % (4.1-12.4) Eosinophils (%) (Auto) 9.4 % (0.4-6.7) H Basophils (%) (Auto) 1.2 % (0.3-1.4) Nucleated RBC Relative Count (auto) 0.1 /100WBC Neutrophils # (Auto) 6.2 K/uL (2.0-7.4) Lymphocytes # (Auto) 2.2 K/uL (1.3-3.6) Monocytes # (Auto) 0.8 K/uL (0.3-1.0) Eosinophils # (Auto) 1.0 K/uL (0.0-0.5) H Basophils # (Auto) 0.1 K/uL (0.0-0.1) Nucleated RBC Absolute Count (auto) 0.01 K/uL Chemistry Test 05/21/19 20:26 Sodium Level 136 mmol/L (137-145) Potassium Level 4.2 mmol/L (3.5-5.0) Chloride Level 103 mmol/L (98-107) Carbon Dioxide Level 25 mmol/L (22-31) Blood Urea Nitrogen 11 mg/dl (7-18) Creatinine 0.70 mg/dl (0.52-1.04) Glomerular Filtration Rate Calc > 60.0 Random Glucose 232 mg/dl (75-110) Calcium Level 9.3 mg/dl (8.4-10.2) Total Bilirubin 0.3 mg/dl (0.2-1.3) Aspartate Amino Transf (AST/SGOT) 19 U/L (0-35) Alanine Aminotransferase (ALT/SGPT) 35 U/L (0-56) Alkaline Phosphatase 95 U/L (0-126) Total Protein 7.6 g/dl (6.3-8.2) Albumin 4.3 g/dl (3.5-5.0) Urinalysis Test 05/21/19 20:23 Urine Color Yellow Urine Clarity Clear Urine pH 5.0 pH (4.8-9.5) Urine Specific [place] 1.025 Urine Protein Negative mg/dL (NEGATIVE) Urine Glucose (UA) 50 mg/dL (NEGATIVE) Urine Ketones Negative mg/dL (NEGATIVE) Urine Blood Negative (NEGATIVE) Urine Nitrite Negative (NEGATIVE) Urine Bilirubin Negative (NEGATIVE) Urine Urobilinogen Negative mg/dL (0.2-1.9) Urine Leukocyte Esterase Negative (NEGATIVE) Urine RBC 1 /HPF (0-2/HPF) Urine WBC <1 /HPF (0-5/HPF) Urine Squamous Epithelial Cells Few /LPF (</=FEW) Urine Bacteria Negative /HPF (NONE-FEW) Urine Mucus None /HPF (NONE-FEW) ED Course/Re-evaluation ED Course The patient was admitted to room. A history and physical obtained. Differential diagnoses were considered. After discussion with patient, she is primarily requesting pain medications I did talk to her about following up with her COMMODITIES REQUIREMENTS ANALYST, Dr. Ng, she states that she did contact his office today however they did not return her call, she was given 4 mg IM morphine, 60 mg IM Toradol. I will send a very limited prescription and forehead codon, did tell her that she needs to follow-up with her PCP for refill on these medications. UA and CBC, CMP were collected. CBC, CMP unremarkable other than blood sugar of 232, patient states that she did have some Pepsi and a cookie just prior to arrival. I did tell her however to follow-up with her PCP for the elevated blood sugar. She will follow up with Dr. Roe for reevaluation of her ovarian cysts and refill of pain medications. She had no other questions or concerns at this time discharged home. Decision to Disposition Date: May 21, 2019 Decision to Disposition Time: 21:03 Depart Departure Latest Vital Signs Vital Signs Date Time Temp Pulse Resp B/P (MAP) Pulse Ox O2 Delivery O2 Flow Rate FiO2 05/21/19 20:10 99.0 87 16 121/86 93 Room Air Impression: Primary Impression: Right lower quadrant abdominal pain Additional Impression: Ovarian cyst Condition: Improved Disposition: HOME OR SELF-CARE Referrals: ROXANNE ROSS MD (PCP) ANNETTE ROE MD 5 Days New Scripts Hydrocodone Bit/Acetaminophen (HYDROCODON-ACETAMINOPHEN 5-325) 1 Each Tablet 1 EACH PO Q4-6H PRN for PAIN, #6 TAB 0 Refills Prov: FORD COOLEYP-BC 05/21/19 Patient Instructions: Ovarian Cyst (ED), Ruptured Ovarian Cyst (ED) Additional Instructions: Please follow-up with Dr. Roe within the next 2-5 days for reevaluation and refill of your medications. Get plenty of rest. Drink plenty of fluids. Return to the ER for any concerns or worsening symptoms. Take ibuprofen or Tylenol as needed for pain. Take hydrocodone for severe pain. Please follow-up with your PCP regarding the elevated blood sugar as well. Problem Qualifiers Additional Impression: Ovarian cyst Laterality: right Qualified Codes: N83.201 - Unspecified ovarian cyst, right side FORD COOLEY INDUSTRIAL HYGIENE ENGINEER-BC May 21, 2019 20:10
[2019-05-21] MEDS ORDERED: KETOROLAC 60 MG/2 ML VIAL IM ONE (20:20)
[2019-05-21] MEDS ORDERED: HYDROMORPHONE HCL 1 MG/ML SYRINGE IM ONE (20:20)
[2019-05-21] MEDS ORDERED: MORPHINE 4 MG/ML SDV IM ONE (20:25)
[2019-05-21 20:36] LABS: PLATELET COUNT, AUTOMATED 397 K/uL (150-450)
[2019-05-21] MEDS ORDERED: ACET/HYDROC 5/325MG TH ER ONLY 2 TAB/BOTTLE PO ONE (21:05)
[2019-05-21] MEDS ORDERED: HYDR-385 PO (21:11)
== END 2019-05-21 21:24 | disposition home or self-care (01) ==
LOC: ER 20:18
DX: R10.31 Right lower quadrant pain (principal); N83.201 Unspecified ovarian cyst, right side; F17.210 Nicotine dependence, cigarettes, uncomplicated
CPT/HCPCS: 81001; 85025; 96372; 99283; J1885; J2270; 82040; 82247; 82310; 82374; 82435; 82565; 82947; 84075; 84132; 84155; 84295; 84450; 84460; 84520